=== PATIENT | male | born 1950 | race Caucasian/White ===

== ENCOUNTER → 2021-07-08 06:29 | Outpatient (CLI) | payer MEDICARE, OTHER, SELFPAY ==
--- NOTE | 2021-07-08 11:35 | STRESSREP ---
Stress Test Report Pharmacologic myocardial perfusion stress test. 70-year-old male with a history of chest pain. Medications simvastatin lisinopril metoprolol Plavix. Stress protocol: Rest EKG demonstrates normal sinus rhythm with a rate of 81 bpm premature ventricular complexes are noted resting blood pressure is 140/88 mmHg. The right bundle branch block pattern is noted. 0.4 mg of regadenoson was infused per usual protocol followed by rapid venous saline flush injection continuous EKG monitoring was performed. The maximum heart rate attained was 97 bpm which was 63% of max infected heart rate the maximum workload was 1 metabolic equivalent. At rest there were no ST or T wave changes noted to suggest abnormal flow reserve and at peak infusion nonspecific ST changes were noted with did not meet the criteria for ischemia. No clinical angina was noted. The final blood pressure was 140/68 mmHg. Myocardial perfusion protocol. 14.2 mCi of technetium 99m sestamibi was injected at rest. 0.4 mg of regadenoson was infused per usual protocol. At peak infusion 44.5 mCi of technetium 99m sestamibi was injected stress images were obtained stress and rest images were reconstructed and compared in the short axis vertical long and horizontal long axis. Gated images were also obtained. Perfusion SPECT analysis: Review of the stress images demonstrate normal uptake of tracer noted in all areas of the myocardium. The resting images similarly demonstrate normal uptake of tracer noted in all areas of the myocardium. No areas of reversibility are noted to suggest ischemia. Gated SPECT analysis: The gated ejection fraction is 81%. Conclusion: Normal pharmacologic myocardial perfusion stress test. Preserved ejection fraction.
== END ==
PROVIDERS: PCP Family Medicine
DX: I25.119 Atherosclerotic heart disease of native coronary artery with unspecified angina pectoris (principal)
CPT/HCPCS: 78452; 93017; A9500; A4216; J2785

== ENCOUNTER 2024-11-18 13:22 | Inpatient (IN) | payer MEDICARE, OTHER, SELFPAY ==
[2024-11-18] VITALS (14 sets, daily range): BP systolic 138–164; BP diastolic 60–89; PULSE 78–92; RESP 16–20; TEMP 36.6–37.6; O2SAT 93–98; BMI 31.0
--- NOTE | 2024-11-18 13:28 | EKG12_ITS ---
Test Reason : SOB Blood Pressure : */* mmHG Vent. Rate : 80 BPM Atrial Rate : 80 BPM P-R Int : 206 ms QRS Dur : 130 ms QT Int : 400 ms P-R-T Axes : 71 64 40 degrees QTcB Int : 461 ms Normal sinus rhythm Right bundle branch block Abnormal ECG Confirmed by CORINA WASHINGTON, IMELDA ([id number]), associate editor JACQUES LEPE ([id number]) on 11/21/2024 7:26:37 AM Referred By: Confirmed By: IMELDA ARRIAGA MD
[2024-11-18 14:08] LABS: Absolute Lymphocyte Count 0.28 X10^3/uL (0.83-4.51); Absolute Neutrophil Count 6.7 X10^3/uL (2.0-7.7); Basophil# 0.03 X10^3/uL; Basophil% 0.4 % (0-1); Eosinophil# 0.03 X10^3/uL; Eosinophils% 0.4 % (0-5); Hematocrit 45.1 % (40-54); Hemoglobin 15.4 g/dL (13.0-16.5); Lymphocyte # 0.28 X10^3/ul (0.83-4.51); Lymphocyte % 3.7 % (19-41); Mean Corp Hgb Conc 34.1 g/dL (32-36); Mean Corpuscular Volume 90.7 fL (80-94); Mean Platelet Vol. 9.3 fl (6.2-12.0); Monocyte# 0.63 X10^3/uL; Monocyte% 8.2 % (0-10); NRBC Flagged by Analyzer 0 % (0-5); Neutrophil # 6.67 X10^3/uL (2.7-7.7); Neutrophil % 86.9 % (47-70); POSITIVE DIFFERENTIAL YES; Platelet Count 190 K/mm3 (150-450); RBC Distribution Width CV 12.2 % (11.6-14.6); RBC Distribution Width SD 40.2 fl (35.1-43.9); Red Blood Count 4.97 M/mm3 (4.6-6.2); White Blood Count 7.7 K/mm3 (4.4-11.0)
[2024-11-18 14:26] LABS: Anion Gap 8 (5-15); BUN 9 mg/dL (7-18); BUN/Creat Ratio 12.4 RATIO (10-20); Calcium,Total 9.2 mg/dL (8.5-10.1); Chloride 101 mmol/L (98-107); Creatinine, Serum 0.72 mg/dL (0.70-1.30); EST Glomerular Filtration Rate 113 mL/min (>60); Est Glom Filt Rate - Afr Amer 137 mL/min (>60); Glucose 144 mg/dL (74-106); Potassium 4.1 mmol/L (3.5-5.1); Sodium Level 134 mmol/L (136-145); Troponin-I HS 8 pg/mL (3.0-78.0)
--- NOTE | 2024-11-18 15:00 | EDS_ITS ---
HPI History of Present Illness Chief Complaint: Cough Narrative Narrative: Patient is a 74-year-old male past medical type 2 diabetes, CAD, hypertension, COPD, hypercholesteremia who presents to the emergency department chief complaint of cough and shortness of breath as well as generalized weakness for the last 4 days. Patient states that he has not been feeling well has had a dry cough not really coughing anything up. Denies any recent travels denies any blood thinning medications. Patient states that he has had whole body aches and decreased appetite as well. [facility] Medical History Hypertension CAD (coronary artery disease) Type 2 diabetes mellitus COPD (chronic obstructive pulmonary disease) Allergy/AdvReac Type Severity Reaction Status Date / Time bee venom protein (honey Allergy Severe Hives Verified 11/18/24 13:23 bee) (bee sting) meperidine (From Demerol) Allergy Severe Other Verified 11/18/24 13:23 Social History household members: spouse housing: house Smoking Status: Former smoker ROS ROS ED ROS Narrative Constitutional: Complains of whole body aches denies any fevers, chills, lightness, dizziness Eyes: Denies change in vision double vision blurry vision Cardiovascular: Denies chest pain or palpitations Respiratory: Complains cough and shortness of breath as noted above Abdomen: Denies abdominal pain nausea vomit diarrhea : Denies any urinary symptoms Neurological: Denies numbness, tingling complaint of generalized weakness as noted above Musculoskeletal: Denies any back pain Skin: Denies rashes or lesions EXAM Physical Exam Narrative Exam Narrative: General: Patient lying in bed rest comfortably did not appear to be acute distress Head: Atraumatic, normocephalic Eyes: PERRL bilaterally, EOMI bilaterally, no conjunctival injection noted Neck: Soft, supple, trachea midline Cardiovascular: Regular rate and rhythm no murmurs gallops rubs noted Respiratory: Clear to auscultation bilaterally no rales rhonchi or wheezes noted Abdomen: Soft, nondistended, nontender to palpation, bowel sounds present x 4 Extremities: Radial pulses +2/4 in the bilateral per extremities, no pedal edema on exam, +4/5 strength noted in the bilateral upper and lower extremities Neurological: Patient following commands knew that this he was at [facility] year is 2024 sensation grossly intact Skin: Warm, dry, intact no rashes or lesions noted Const Vital Signs: 11/18/24 13:24 11/18/24 13:27 11/18/24 14:27 Temperature 98.0 F 98.0 F Temperature Source Oral Oral Pulse Rate 80 80 Respiratory Rate 20 H 20 H Respiratory Effort Respiratory Depth Respiratory Pattern Blood Pressure 154/66 H 154/66 H Blood Pressure Mean 95 95 Pulse Ox 98 98 96 Oxygen Delivery Method Room Air Room Air Room Air 11/18/24 14:27 11/18/24 14:27 11/18/24 14:27 Temperature 99.1 F Temperature Source Oral Pulse Rate 86 Respiratory Rate 20 H 20 H Respiratory Effort Normal Non-Labored Respiratory Depth Respiratory Pattern Normal Blood Pressure 138/86 H Blood Pressure Mean 103 Pulse Ox 96 96 Oxygen Delivery Method Room Air 11/18/24 14:35 11/18/24 15:00 11/18/24 15:18 Temperature 98.9 F Temperature Source Oral Pulse Rate 78 Respiratory Rate 19 H 20 H Respiratory Effort Short of Breath Labored Respiratory Depth Deep Respiratory Pattern Normal Normal Blood Pressure 138/89 H Blood Pressure Mean 105 Pulse Ox 96 Oxygen Delivery Method Room Air 11/18/24 15:22 11/18/24 16:00 Temperature 98.7 F 98.9 F Temperature Source Oral Oral Pulse Rate 89 78 Respiratory Rate 20 H 19 H Respiratory Effort Respiratory Depth Respiratory Pattern Blood Pressure 149/60 H 138/89 H Blood Pressure Mean 89 105 Pulse Ox 95 96 Oxygen Delivery Method Room Air Room Air MDM MDM MDM Narrative Medical decision making narrative: Patient is a 74-year-old male who presented to the emergency department with a chief complaint of cough, shortness of breath and generalized weakness for the last 4 days. On the differential diagnose includes but not limited to ACS, pneumonia, pneumothorax, perspire infection secondary viral etiology, COPD exacerbation. Once workup is obtained reviewed he will be reevaluated. Patient CBC reviewed showed no evidence leukocytosis white blood count normal at 7.7, hemoglobin 15.4, plate count normal at 190. Patient sodium normal at 134, potassium normal at 4.1, creatinine was 0.72. Patient's glucose was noted be 144.. Patient's troponin was noted to be normal at 8 with a delta troponin normal at 8. Patient proBNP normal at 36.8. Patient's EKG reviewed and independently interpreted by myself showed sinus rhythm with a rate of 80 bpm with evidence of right bundle branch block.Patient chest x-ray reviewed by myself and by radiology showed no acute cardiopulmonary processes. Patient attempted to ambulate here in the emergency department and before fully get out of bed he became tachycardic and hypoxic therefore the patient will be admitted to the hospital under the hospitalist service will discuss with them. Did discuss case with hospitalist Dr. Barrera who accept patient for admission [facility]. Patient was notified all question concerns answered. Lab Data Labs: Laboratory Results - last 24 hr 11/18/24 11/18/24 13:53 15:29 WBC 7.7 RBC 4.97 Hgb 15.4 Hct 45.1 MCV 90.7 MCH 31.0 MCHC 34.1 RDW Std Deviation 40.2 RDW Coeff of Rosemary 12.2 Plt Count 190 MPV 9.3 Immature Gran % (Auto) 0.400 Neut % (Auto) 86.9 H Lymph % (Auto) 3.7 L [place] % (Auto) 8.2 Eos % (Auto) 0.4 Baso % (Auto) 0.4 Absolute Neuts (auto) 6.7 Absolute Lymphs (auto) 0.28 L Nucleated RBC % 0 Sodium 134 L Potassium 4.1 Chloride 101 Carbon Dioxide 25.0 Anion Gap 8 BUN 9 Creatinine 0.72 Est GFR (MDRD) Af Amer 137 Est GFR (MDRD) Non-Af 113 BUN/Creatinine Ratio 12.4 Glucose 144 H Calcium 9.2 Troponin I High Sens 8 8 B-Natriuretic Peptide 36.8 Radiography Diagnostic Testing: Clinical Impression(s) from Imaging Studies Chest X-Ray 11/18/24 15:35 IMPRESSION: No acute cardiopulmonary process. Reading Location: [facility] Discharge Plan Triage Chief Complaint: Cough Other Complaint: General Illness ED Provider: Manuel Tuttle Dx/Rx/DC Orders Clinical Impression: Acute hypoxic respiratory failure, COPD exacerbation, Influenza A Primary Care Provider: CASANDRA SORIA Referrals: James Hopkins DO [Non-Staff] - Print Language: Serbian
[2024-11-18] MEDS: Ipratropium/Albuterol Sulfate 3 ML AMPUL.NEB INHALATION ×2 (15:17→20:40)
[2024-11-18] MEDS: predniSONE 20 MG Tablet 60 MG PO (15:23)
[2024-11-18] MEDS: 0.9% Normal Saline (1000mL) 1,000 ML 999 ML IV (15:23)
--- NOTE | 2024-11-18 15:35 | RAD_ITS ---
EXAM: XR Chest, 2 Views CLINICAL INDICATION: TECHNIQUE: Frontal and lateral views of the chest. COMPARISON: No relevant prior studies available. FINDINGS: LUNGS AND PLEURAL SPACES: Unremarkable. No consolidation. No pneumothorax. HEART: Unremarkable. No cardiomegaly. MEDIASTINUM: Unremarkable. Normal mediastinal contour. BONES/JOINTS: Unremarkable. No acute fracture. RAD/Chest PA and Lateral IMPRESSION: No acute cardiopulmonary process. Reading [facility]
[2024-11-18 15:40] LABS: BNP,B-Type NATRIURETIC PEPTIDE 36.8 pg/mL (0-100)
[2024-11-18 16:07] LABS: Troponin-I HS 8 pg/mL (3.0-78.0)
--- NOTE | 2024-11-18 17:07 | PCM.HP.STD ---
HPI - General General Date of Admission: 11/18/24 Date of Service: 11/18/24 Chief Complaint: SOB, aches HPI Narrative FRANKLIN BROWN, is a 74-year-old male history of COPD, coronary disease, hypertension who presented [facility] ED 11/18/2024 with several days of bodyaches, fevers, chills and dry cough. In the ED lab workup fairly benign however when patient was ambulated she dropped to 88% on room air and became slightly tachycardic. He was noted to have influenza, given prednisone and a DuoNeb and hospitalist contacted for admission. Patient evaluated at bedside and reports that for for 5 days he has had shortness of breath, dry cough, chills and whole body aches. Also some sore throat and headache, reports he has chronic stable angina which is overall fairly unchanged. Denies other acute complaints [facility] Medical History (Updated 11/18/24 @ 17:[address] Glenis Barrera MD) CAD (coronary artery disease) COPD (chronic obstructive pulmonary disease) Hypertension Type 2 diabetes mellitus Home Medications ?Medication ?Instructions ?Recorded ?Last Taken ?Type clopidogrel 75 mg tablet 75 mg PO DAILY 11/18/24 Unknown History lisinopril 5 mg tablet 5 mg PO DAILY 11/18/24 Unknown History metoprolol tartrate 50 mg tablet 50 mg PO DAILY 11/18/24 Unknown History simvastatin 40 mg tablet 40 mg PO DAILY 11/18/24 Unknown History Allergy/AdvReac Type Severity Reaction Status Date / Time bee venom protein (honey Allergy Severe Hives Verified 11/18/24 13:23 bee) (bee sting) meperidine (From Demerol) Allergy Severe Other Verified 11/18/24 13:23 Social History household members: spouse housing: house Smoking Status: Former smoker ROS ROS Narrative General: Chills HENT: Headache and sore throat EYES: Denies changes in vision Resp: Dry cough and increased shortness of breath Cardiac: Chronic stable angina GI: Denies abdominal pain, denies changes in bowel, denies nausea/vomiting : Denies changes in urination Extremity: Denies swelling MSK: Some generalized weakness Neuro: Chronic neuropathy Heme: Denies any bleeding or bruising Skin: Denies rashes Psychiatric: No complaints voiced Vital Signs Vital Signs Vital Signs: 11/18/24 13:24 11/18/24 13:27 11/18/24 14:27 Temperature 98.0 F 98.0 F Temperature Source Oral Oral Pulse Rate 80 80 Respiratory Rate 20 H 20 H Respiratory Effort Respiratory Depth Respiratory Pattern Blood Pressure 154/66 H 154/66 H Blood Pressure Mean 95 95 Pulse Ox 98 98 96 Oxygen Delivery Method Room Air Room Air Room Air 11/18/24 14:27 11/18/24 14:27 11/18/24 14:27 Temperature 99.1 F Temperature Source Oral Pulse Rate 86 Respiratory Rate 20 H 20 H Respiratory Effort Normal Non-Labored Respiratory Depth Respiratory Pattern Normal Blood Pressure 138/86 H Blood Pressure Mean 103 Pulse Ox 96 96 Oxygen Delivery Method Room Air 11/18/24 14:35 11/18/24 15:00 11/18/24 15:18 Temperature 98.9 F Temperature Source Oral Pulse Rate 78 Respiratory Rate 19 H 20 H Respiratory Effort Short of Breath Labored Respiratory Depth Deep Respiratory Pattern Normal Normal Blood Pressure 138/89 H Blood Pressure Mean 105 Pulse Ox 96 Oxygen Delivery Method Room Air 11/18/24 15:22 11/18/24 16:00 11/18/24 16:48 Temperature 98.7 F 98.9 F 98.9 F Temperature Source Oral Oral Pulse Rate 89 78 78 Respiratory Rate 20 H 19 H 19 H Respiratory Effort Respiratory Depth Respiratory Pattern Blood Pressure 149/60 H 138/89 H 164/69 H Blood Pressure Mean 89 105 100 Pulse Ox 95 96 96 Oxygen Delivery Method Room Air Room Air Weight Weight: 101 kg Body Mass Index (BMI) 31.0 Physical Exam Narrative General: Alert, no apparent distress HEENT: Atraumatic, normocephalic Eyes: Anicteric, normal conjunctiva, extraocular movements grossly intact Neck: Supple Respiratory: Diminished bilaterally, slight increased respiratory effort Cardiovascular: Regular rate and rhythm GI: Soft, nontender, nondistended Extremities: No edema Musculoskeletal: Moving all extremities Neuro: No overt focal neurological deficits Skin: No rashes appreciated Psych: Cooperative Results Lab / Micro Data 11/18/24 13:53 11/18/24 13:53 Labs: Laboratory Results - last 24 hr 11/18/24 13:53: WBC 7.7, RBC 4.97, Hgb 15.4, Hct 45.1, MCV 90.7, MCH 31.0, MCHC 34.1, RDW Std Deviation 40.2, RDW Coeff of Rosemary 12.2, Plt Count 190, MPV 9.3, Immature Gran % (Auto) 0.400, Neut % (Auto) 86.9 H, Lymph % (Auto) 3.7 L, [place] % (Auto) 8.2, Eos % (Auto) 0.4, Baso % (Auto) 0.4, Absolute Neuts (auto) 6.7, Absolute Lymphs (auto) 0.28 L, Nucleated RBC % 0, Sodium 134 L, Potassium 4.1, Chloride 101, Carbon Dioxide 25.0, Anion Gap 8, BUN 9, Creatinine 0.72, Est GFR (MDRD) Af Amer 137, Est GFR (MDRD) Non-Af 113, BUN/Creatinine Ratio 12.4, Glucose 144 H, Calcium 9.2, Troponin I High Sens 8, B-Natriuretic Peptide 36.8 11/18/24 15:29: Troponin I High Sens 8 Micro: Microbiology 11/18/24 13:36 Mucosa - Nose SARS-CoV-2, Influenza & RSV (PCR) - Final Influenzae A Imaging Radiology Impression Chest X-Ray 11/18/24 15:35 IMPRESSION: No acute cardiopulmonary process. Reading Location: [facility] Assessment & Plan Assessment/Plan (1) COPD exacerbation: (2) Influenza A: PLAN: Plan #Acute exacerbation of COPD -Admit to floor, continuous O2 monitoring -Chest x-ray: No acute process -Positive for influenza -O2 in place, wean as tolerated -IV methylprednisone -Scheduled DuoNebs -Albuterol prn -Incentive spirometer -Mucinex # History of coronary artery disease -Based on external fill history patient on complete a grill, statin, metoprolol, will continue but will need to verify home medication list #Type 2 diabetes mellitus -Glucose checks and sliding scale insulin -Patient reports being on insulin but was unable to tell me how much, do not see this on external fill history, will need to ultimately clarify #Hypertension -Patient most recent fill history with lisinopril metoprolol, these have been continued pending updated medicine reconciliation #DVT ppx: Lovenox subcu Glenis Barrera MD Charges/Coding Visit Charges Inpatient E&M: 21850 Init Hosp L1
--- NOTE | 2024-11-18 18:26 | CASEMGMT ---
Care Management Face to Face with patient for initial transition planning/care coordination assessment in the ED.? This blurb writer introduced self and role at [facility]. Patient alert and oriented. Patient willing to participate in assessment and is able to answer all questions appropriately.? Care providers, pharmacy, and demographics verified. Admitting Diagnosis: COPD exacerbation Other diagnosis history: CAD, Hypertension, Diabetes type 2 PCP: Luciano Specialists: Luciano, cardiology Preferred Pharmacy: [facility] Insurance: Medicare Prescription Benefit:?yes Living Will/HPOA: ?No LNOK: Living Arrangements: Lives with in a two story home, does not use 2nd story , has been independent in ADLs and IADLs Transportation: drives self DME: cane HHC: none SNF/Rehab: none Community Resources: none Behavioral Health History: none Patient goals: Patient wishes to discharge home, denies need for home health care at this time. Patient states he has no further needs or concerns at this time. Disposition Plan: admission to acute; RN CM/SW to follow for discharge planning needs that may arise. Haleigh Gomez, BOATING SAFETY OFFICER, ORACLE CONSULTANT
[2024-11-18] MEDS: Acetaminophen 325 MG Tablet 650 MG PO (20:11)
[2024-11-18] MEDS: Atorvastatin Calcium 20 MG Tablet PO (21:39)
[2024-11-18] MEDS: guaiFENesin 600 MG Tablet PO (21:39)
[2024-11-18] MEDS: 0.9% Saline Lock 10 ML Syringe IV (21:41)
[2024-11-18] MEDS: Insulin Lispro 100 UNIT/ML INSULN.PEN SC (21:45)
[2024-11-18 22:08] LABS: Bedside Glucose 228 mg/dL (74-106)
[2024-11-19] VITALS (9 sets, daily range): BP systolic 142–166; BP diastolic 68–88; PULSE 68–100; RESP 15–24; TEMP 36.5–36.7; O2SAT 94–98
[2024-11-19] MEDS: Ipratropium/Albuterol Sulfate 3 ML AMPUL.NEB INHALATION ×3 (00:30→07:42)
[2024-11-19] MEDS: Insulin Lispro 100 UNIT/ML INSULN.PEN SC ×4 (06:28→22:35)
[2024-11-19] MEDS: 0.9% Saline Lock 10 ML Syringe IV ×3 (06:29→20:13)
[2024-11-19 06:49] LABS: Bedside Glucose 284 mg/dL (74-106)
[2024-11-19 07:23] LABS: Absolute Lymphocyte Count 0.27 X10^3/uL (0.83-4.51); Absolute Neutrophil Count 4.5 X10^3/uL (2.0-7.7); Hematocrit 40.4 % (40-54); Hemoglobin 14.1 g/dL (13.0-16.5); Lymphocyte # 0.27 X10^3/ul (0.83-4.51); Lymphocyte % 5.5 % (19-41); Mean Corp Hgb Conc 34.9 g/dL (32-36); Mean Corpuscular Hgb 31.4 pg (27.0-32.0); Mean Platelet Vol. 9.8 fl (6.2-12.0); NRBC Flagged by Analyzer 0 % (0-5); Neutrophil # 4.45 X10^3/uL (2.7-7.7); Neutrophil % 89.9 % (47-70); POSITIVE DIFFERENTIAL YES; Platelet Count 172 K/mm3 (150-450); RBC Distribution Width CV 12.2 % (11.6-14.6); RBC Distribution Width SD 40.1 fl (35.1-43.9); Red Blood Count 4.49 M/mm3 (4.6-6.2)
--- NOTE | 2024-11-19 07:40 | PN.HOSP_ITS ---
Reason for Visit Reason for Visit: Diagnoses Influenza due to other identified influenza virus with other respiratory manifestations (11/18/24) Chronic obstructive pulmonary disease with (acute) exacerbation (11/18/24) Subjective Subjective Patient is a 74-year-old gentleman admitted with progressive shortness of breath. Patient tested positive for influenza A admitted to the regular nursing floor where patient is currently being managed Objective Data Objective Data Vital Signs: Vital Signs Temp Pulse Resp BP Pulse Ox O2 Del Method 98.1 F 88 16 146/68 H 98 Room Air 11/19/24 02:31 11/19/24 03:50 11/19/24 03:50 11/19/24 02:31 11/19/24 02:31 11/19/24 02:35 Oxygen Delivery Method Room Air Weight: 101 kg Body Mass Index (BMI) 31.0 Intake & Output: Intake and Output for Last 24 Hours 11/17/24 11/18/24 11/19/24 23:59 23:59 23:59 Intake Total 1400 / 1400 300 / 300 Balance 1400 / 1400 300 / 300 Lab / Micro Data 11/19/24 06:32 11/19/24 06:32 Labs: Laboratory Results - last 24 hr 11/18/24 13:53: WBC 7.7, RBC 4.97, Hgb 15.4, Hct 45.1, MCV 90.7, MCH 31.0, MCHC 34.1, RDW Std Deviation 40.2, RDW Coeff of Rosemary 12.2, Plt Count 190, MPV 9.3, Immature Gran % (Auto) 0.400, Neut % (Auto) 86.9 H, Lymph % (Auto) 3.7 L, [place] % (Auto) 8.2, Eos % (Auto) 0.4, Baso % (Auto) 0.4, Absolute Neuts (auto) 6.7, A bsolute Lymphs (auto) 0.28 L, Nucleated RBC % 0, Sodium 134 L, Potassium 4.1, Chloride 101, Carbon Dioxide 25.0, Anion Gap 8, BUN 9, Creatinine 0.72, Est GFR (MDRD) Af Amer 137, Est GFR (MDRD) Non-Af 113, BUN/Creatinine Ratio 12.4, G lucose 144 H, Calcium 9.2, Troponin I High Sens 8, B-Natriuretic Peptide 36.8 11/18/24 15:29: Troponin I High Sens 8 11/18/24 21:44: POC Glucose 228 H 11/19/24 06:27: POC Glucose 284 H 11/19/24 06:32: WBC 5.0, RBC 4.49 L, Hgb 14.1, Hct 40.4, MCV 90.0, MCH 31.4, MCHC 34.9, RDW Std Deviation 40.1, RDW Coeff of Rosemary 12.2, Plt Count 172, MPV 9.8, Immature Gran % (Auto) 0.600, Neut % (Auto) 89.9 H, Lymph % (Auto) 5.5 L, [place] % (Auto) 4.0, Eos % (Auto) 0.0, Baso % (Auto) 0.0, Absolute Neuts (auto) 4.5, Absolute Lymphs (auto) 0.27 L, Nucleated RBC % 0 Micro: Microbiology 11/18/24 13:36 Mucosa - Nose SARS-CoV-2, Influenza & RSV (PCR) - Final Influenzae A Radiography Diagnostic Testing: Radiology Impression Chest X-Ray 11/18/24 15:35 IMPRESSION: No acute cardiopulmonary process. Reading Location: [facility] Physical Exam Narrative GENERAL: Appears anxious and tremulous HEENT: Atraumatic; normocephalic EYES; Anicteric, Normal Conjunctiva NECK; supple, normal thyroid, RESPIRATORY: Diminished to auscultation CARDIOVASCULAR: Regular S1 S2, GI: soft, normoactive bowel sounds, : No Renal angle tenderness; EXTREMITIES: No edema, no clubbing, MUSCULOSKELETAL: no muscle wasting NEURO: Awake; no lateralizing signs. SKIN: No Rash PSYCH; Flat affect Assessment & Plan Assessment/Plan (1) COPD exacerbation: (2) Influenza A: PLAN: Plan Patient is a 74-year-old gentleman admitted with progressive shortness of breath. Patient tested positive for influenza A admitted to the regular nursing floor where patient is currently being managed 1. Acute exacerbation of COPD exacerbated by influenza A. Patient admitted to regular nursing floor patient was started on methylprednisolone as well as DuoNeb and albuterol as needed patient however had a significant reaction to the DuoNeb with significant tremors. DuoNeb subsequently discontinued patient placed on albuterol only as needed. 2. Coronary artery disease ? Patient is on guideline directed medical therapy 3. Dyslipidemia ?Patient is on statin therapy, continued at home dose 4. Hypertension ? Blood pressure controlled, home medications continued with dose adjustment as needed 5. Diabetes mellitus type 2 ? Per history currently not on any treatment. Patient however developed significant hypoglycemia following use of methylprednisolone patient subsequently started on scheduled long-acting insulin with Accu-Cheks before meals and at bedtime with sliding scale coverage 6. Class I obesity with BMI of 31 ? Complicating care weight loss advised 7. Hyponatremia ? Sodium level on admission [id number]. Will continue with monitoring 8. DVT prophylaxis ? On enoxaparin Time spent in the patient's overall evaluation,decision-making process, review of diagnostic data, adjustment of management, discussion with other providers, nursing nursing and ancillary staff involved in patient's care documentation, 50 Minutes Charges/Coding Visit Charges Inpatient E&M: 81978 [facility] L3
[2024-11-19 07:43] LABS: Anion Gap 11 (5-15); BUN 15 mg/dL (7-18); BUN/Creat Ratio 18.3 RATIO (10-20); Calcium,Total 8.9 mg/dL (8.5-10.1); Chloride 102 mmol/L (98-107); Creatinine, Serum 0.82 mg/dL (0.70-1.30); EST Glomerular Filtration Rate 98 mL/min (>60); Est Glom Filt Rate - Afr Amer 119 mL/min (>60); Estimated Creatinine Clearance 98.57 ml/min; Glucose 301 mg/dL (74-106); Potassium 3.8 mmol/L (3.5-5.1); Sodium Level 134 mmol/L (136-145)
--- NOTE | 2024-11-19 07:48 | CPS ---
pt began shaking about 1 minute into his aerosol (he doesn't take at home), shaking was severe. Pt says this happened after the aerosol last night. RT will backline the DR. Pt doesn't want anymore and isn't wheezing.
[2024-11-19] MEDS: LORazepam 1 MG Tablet PO (09:22)
[2024-11-19 10:14] LABS: Bedside Glucose 298 mg/dL (74-106)
[2024-11-19] MEDS: Metoprolol Tartrate 50 MG Tablet PO (10:34)
[2024-11-19] MEDS: guaiFENesin 600 MG Tablet PO ×2 (10:34→20:13)
[2024-11-19] MEDS: Clopidogrel Bisulfate 75 MG Tablet PO (10:34)
[2024-11-19] MEDS: Enoxaparin 40 MG/0.4 ML Syringe SC (10:35)
[2024-11-19] MEDS: Lisinopril 5 MG Tablet PO (10:35)
[2024-11-19 11:01] LABS: D-Dimer Quantitative (DVT/PE) 0.64 FEU/ug/m (0.27-0.49)
[2024-11-19] MEDS: Insulin Glargine-YFGN 100 UNIT/ML Pen 10 UNIT SC ×2 (11:51→22:34)
[2024-11-19 12:15] LABS: Bedside Glucose 374 mg/dL (74-106)
[2024-11-19] MEDS: Glycerin/Hypromellose/PEG400 15 ml Bottle 2 DRP EACH EYE (15:36)
[2024-11-19 16:26] LABS: Bedside Glucose 364 mg/dL (74-106)
[2024-11-19] MEDS: Atorvastatin Calcium 20 MG Tablet PO (20:13)
[2024-11-19] MEDS: Acetaminophen 325 MG Tablet 650 MG PO (22:41)
[2024-11-19 22:56] LABS: Bedside Glucose 338 mg/dL (74-106)
[2024-11-20 03:00] VITALS: BP 132/93; PULSE 98; RESP 15; TEMP 36.7; O2SAT 96
[2024-11-20] MEDS: LORazepam 1 MG Tablet PO (03:14)
[2024-11-20 03:26] LABS: Bedside Glucose 284 mg/dL (74-106)
[2024-11-20] MEDS: 0.9% Saline Lock 10 ML Syringe IV (05:44)
[2024-11-20] MEDS: Insulin Lispro 100 UNIT/ML INSULN.PEN SC ×2 (06:45→11:59)
[2024-11-20 07:18] LABS: Bedside Glucose 258 mg/dL (74-106)
--- NOTE | 2024-11-20 07:34 | PCM.PN.HOSP ---
Reason for Visit Reason for Visit: Diagnoses Influenza due to other identified influenza virus with other respiratory manifestations (11/18/24) Chronic obstructive pulmonary disease with (acute) exacerbation (11/18/24) Subjective Subjective Patient seen patient has been weaned off oxygen currently saturating 94% on room air. An order was placed for patient to be assessed for home oxygen Objective Data Objective Data Vital Signs: Vital Signs Temp Pulse Resp BP Pulse Ox O2 Del Method 98.1 F 98 15 132/93 H 96 Room Air 11/20/24 03:00 11/20/24 03:00 11/20/24 03:00 11/20/24 03:00 11/20/24 03:00 11/20/24 03:00 Oxygen Delivery Method Room Air Weight: 101 kg Body Mass Index (BMI) 31.0 Intake & Output: Intake and Output for Last 24 Hours 11/18/24 11/19/24 11/20/24 23:59 23:59 23:59 Intake Total 1400 / 1400 550 / 550 Output Total 300 / 300 Balance 1400 / 1400 550 / 550 -300 / -300 Lab / Micro Data 11/20/24 07:09 11/20/24 07:09 Labs: Laboratory Results - last 24 hr 11/19/24 06:32: Sodium 134 L, Potassium 3.8, Chloride 102, Carbon Dioxide 21.0, Anion Gap 11, BUN 15, Creatinine 0.82, Estim Creat Clear Calc 98.57, Est GFR (MDRD) Af Amer 119, Est GFR (MDRD) Non-Af 98, BUN/Creatinine Ratio 18.3, Glucose 301 H, Calcium 8.9 11/19/24 09:56: POC Glucose 298 H 11/19/24 10:06: D-Dimer Quant (PE/DVT) 0.64 H* 11/19/24 11:50: POC Glucose 374 H 11/19/24 16:02: POC Glucose 364 H 11/19/24 22:32: POC Glucose 338 H 11/20/24 03:02: POC Glucose 284 H 11/20/24 06:42: POC Glucose 258 H Micro: Microbiology 11/18/24 13:36 Mucosa - Nose SARS-CoV-2, Influenza & RSV (PCR) - Final Influenzae A Physical Exam Narrative GENERAL: Appears anxious and tremulous HEENT: Atraumatic; normocephalic EYES; Anicteric, Normal Conjunctiva NECK; supple, normal thyroid, RESPIRATORY: Diminished to auscultation CARDIOVASCULAR: Regular S1 S2, GI: soft, normoactive bowel sounds, : No Renal angle tenderness; EXTREMITIES: No edema, no clubbing, MUSCULOSKELETAL: no muscle wasting NEURO: Awake; no lateralizing signs. SKIN: No Rash PSYCH; Flat affect Assessment & Plan Assessment/Plan (1) COPD exacerbation: (2) Influenza A: PLAN: Plan Patient is a 74-year-old gentleman admitted with progressive shortness of breath. Patient tested positive for influenza A admitted to the regular nursing floor where patient is currently being managed 1. Acute exacerbation of COPD exacerbated by influenza A. Patient admitted to regular nursing floor patient was started on methylprednisolone as well as DuoNeb and albuterol as needed patient however had a significant reaction to the DuoNeb with significant tremors. DuoNeb subsequently discontinued patient placed on albuterol only as needed. ? 11/20/2024; patient has been weaned off oxygen plan is to assess patient for home oxygen prior to making a decision regarding disposition 2. Coronary artery disease ? Patient is on guideline directed medical therapy 3. Dyslipidemia ?Patient is on statin therapy, continued at home dose 4. Hypertension ? Blood pressure controlled, home medications continued with dose adjustment as needed 5. Diabetes mellitus type 2 ? Per history currently not on any treatment. Patient however developed significant hypoglycemia following use of methylprednisolone patient subsequently started on scheduled long-acting insulin with Accu-Cheks before meals and at bedtime with sliding scale coverage ? 11/20/2024; patient blood glucose levels still remain elevated adjusted his long-acting insulin levels 6. Class I obesity with BMI of 31 ? Complicating care weight loss advised 7. Hyponatremia ? Sodium level on admission [id number]. Will continue with monitoring 8. DVT prophylaxis ? On enoxaparin 9. Elevated D-dimer ? CTA ordered for subsequent Time spent in the patient's overall evaluation,decision-making process, review of diagnostic data, adjustment of management, discussion with other providers, nursing nursing and ancillary staff involved in patient's care documentation, 40 Minutes Charges/Coding Visit Charges Inpatient E&M: 60248 Subs Hosp L2
[2024-11-20 07:41] LABS: Absolute Lymphocyte Count 0.55 X10^3/uL (0.83-4.51); Absolute Neutrophil Count 9.6 X10^3/uL (2.0-7.7); Basophil# 0.01 X10^3/uL; Basophil% 0.1 % (0-1); Hematocrit 42.4 % (40-54); Hemoglobin 14.5 g/dL (13.0-16.5); Lymphocyte # 0.55 X10^3/ul (0.83-4.51); Mean Corp Hgb Conc 34.2 g/dL (32-36); Mean Corpuscular Volume 90.8 fL (80-94); Mean Platelet Vol. 9.9 fl (6.2-12.0); Monocyte# 0.81 X10^3/uL; Monocyte% 7.3 % (0-10); NRBC Flagged by Analyzer 0 % (0-5); Neutrophil # 9.63 X10^3/uL (2.7-7.7); Neutrophil % 87.3 % (47-70); POSITIVE DIFFERENTIAL YES; Platelet Count 209 K/mm3 (150-450); RBC Distribution Width CV 12.5 % (11.6-14.6); RBC Distribution Width SD 41.1 fl (35.1-43.9); Red Blood Count 4.67 M/mm3 (4.6-6.2)
[2024-11-20 08:00] VITALS: RESP 20
[2024-11-20 08:02] VITALS: O2SAT 94
[2024-11-20 08:40] VITALS: BP 157/74; PULSE 80; RESP 20; TEMP 36.7; O2SAT 95
[2024-11-20 08:40] LABS: Anion Gap 7 (5-15); BUN 25 mg/dL (7-18); BUN/Creat Ratio 30.1 RATIO (10-20); Calcium,Total 8.9 mg/dL (8.5-10.1); Chloride 104 mmol/L (98-107); Creatinine, Serum 0.83 mg/dL (0.70-1.30); EST Glomerular Filtration Rate 97 mL/min (>60); Est Glom Filt Rate - Afr Amer 117 mL/min (>60); Estimated Creatinine Clearance 97.38 ml/min; Glucose 265 mg/dL (74-106); Magnesium 2.3 mg/dL (1.6-2.6); Phosphorus 3.2 mg/dL (2.5-4.9); Potassium 4.5 mmol/L (3.5-5.1); Sodium Level 134 mmol/L (136-145)
[2024-11-20 09:02] VITALS: PULSE 80
[2024-11-20] MEDS: Lisinopril 5 MG Tablet PO (09:02)
[2024-11-20] MEDS: Metoprolol Tartrate 50 MG Tablet PO (09:02)
[2024-11-20] MEDS: guaiFENesin 600 MG Tablet PO (09:02)
[2024-11-20] MEDS: Acetaminophen 325 MG Tablet 650 MG PO (09:03)
[2024-11-20] MEDS: Clopidogrel Bisulfate 75 MG Tablet PO (09:03)
[2024-11-20 10:47] VITALS: O2SAT 93; O2SAT 96
--- NOTE | 2024-11-20 12:05 | DS.PCM_ITS ---
Providers Date of Admission: 11/18/24 Primary Care Physician: CASANDRA SORIA MD Reason For Visit: ACUTE HYPOXIC RESPIRATORY FAILURE, COPD EXACERBATI Diagnosis Discharge Diagnosis (1) COPD exacerbation: Status: Chronic Code(s): J44.1 - Chronic obstructive pulmonary disease with (acute) exacerbation (2) Influenza A: Status: Acute Code(s): J10.1 - Influenza due to other identified influenza virus with other respiratory manifestations Plan Patient is a 74-year-old gentleman admitted with progressive shortness of breath. Patient tested positive for influenza A admitted to the regular nursing floor where patient is currently being managed 1. Acute exacerbation of COPD exacerbated by influenza A. Patient admitted to regular nursing floor patient was started on methylprednisolone as well as DuoNeb and albuterol as needed patient however had a significant reaction to the DuoNeb with significant tremors. DuoNeb subsequently discontinued patient placed on albuterol only as needed. ? 11/20/2024; patient has been weaned off oxygen plan is to assess patient for home oxygen prior to making a decision regarding disposition ? Patient did not require oxygen hence the decision to discharge patient home 2. Coronary artery disease ? Patient is on guideline directed medical therapy 3. Dyslipidemia ?Patient is on statin therapy, continued at home dose 4. Hypertension ? Blood pressure controlled, home medications continued with dose adjustment as needed 5. Diabetes mellitus type 2 ? Per history currently not on any treatment. Patient however developed significant hypoglycemia following use of methylprednisolone patient subsequently started on scheduled long-acting insulin with Accu-Cheks before meals and at bedtime with sliding scale coverage ? 11/20/2024; patient blood glucose levels still remain elevated adjusted his long-acting insulin levels ? Prescription was written for glimepiride and metformin on discharge patient instructed to follow-up with primary care physician for management of his diabetes 6. Class I obesity with BMI of 31 ? Complicating care weight loss advised 7. Hyponatremia ? Sodium level on admission [id number]. Will continue with monitoring 8. DVT prophylaxis ? On enoxaparin 9. Elevated D-dimer ? D-dimer normal adjusted for patient's age Time spent in the patient's overall evaluation,decision-making process, review of diagnostic data, adjustment of management, discussion with other providers, nursing nursing and ancillary staff involved in patient's care documentation, 40 Minutes Medications at Discharge Home Medications clopidogrel 75 mg tablet 75 mg PO DAILY 02/07/25 lisinopril 5 mg tablet 5 mg PO DAILY 11/18/24 metoprolol tartrate 50 mg tablet 50 mg PO DAILY 11/18/24 simvastatin 40 mg tablet 40 mg PO DAILY 11/18/24 doxycycline hyclate 100 mg capsule 100 mg PO BID #14 caps 11/20/24 glimepiride 1 mg tablet 1 mg PO DAILY #60 tabs 11/20/24 guaifenesin 600 mg tablet, extended release 12 hr (Mucinex) 600 mg PO BID #20 tabs 11/20/24 metformin 1,000 mg tablet 1,000 mg PO BID 60 days #120 tabs 11/20/24 prednisone 20 mg tablet 20 mg PO BID #10 tabs 11/20/24 Physical Exam Narrative GENERAL: Patient in no apparent distress HEENT: Atraumatic; normocephalic EYES; Anicteric, Normal Conjunctiva NECK; supple, normal thyroid, RESPIRATORY: Diminished to auscultation CARDIOVASCULAR: Regular S1 S2, GI: soft, normoactive bowel sounds, : No Renal angle tenderness; EXTREMITIES: No edema, no clubbing, MUSCULOSKELETAL: no muscle wasting NEURO: Awake; no lateralizing signs. SKIN: No Rash PSYCH; Flat affect Weight / BMI Weight Weight: 101 kg Body Mass Index (BMI) 31.0 ABG / Lab / Microbiology Data 11/20/24 07:09 11/20/24 07:09 Laboratory: Laboratory Results - last 24 hr 11/19/24 11:50: POC Glucose 374 H 11/19/24 16:02: POC Glucose 364 H 11/19/24 22:32: POC Glucose 338 H 11/20/24 03:02: POC Glucose 284 H 11/20/24 06:42: POC Glucose 258 H 11/20/24 07:09: WBC 11.0, RBC 4.67, Hgb 14.5, Hct 42.4, MCV 90.8, MCH 31.0, MCHC 34.2, RDW Std Deviation 41.1, RDW Coeff of Rosemary 12.5, Plt Count 209, MPV 9.9, Immature Gran % (Auto) 0.300, Neut % (Auto) 87.3 H, Lymph % (Auto) 5.0 L, [place] % (Auto) 7.3, Eos % (Auto) 0.0, Baso % (Auto) 0.1, Absolute Neuts (auto) 9.6 H, A bsolute Lymphs (auto) 0.55 L, Nucleated RBC % 0, Sodium 134 L, Potassium 4.5, Chloride 104, Carbon Dioxide 23.0, Anion Gap 7, BUN 25 H, Creatinine 0.83, Estim Creat Clear Calc 97.38, Est GFR (MDRD) Af Amer 117, Est GFR (MDRD) Non-Af 97, B UN/Creatinine Ratio 30.1 H, Glucose 265 H, Calcium 8.9, Phosphorus 3.2, Magnesium 2.3 Microbiology: Microbiology 11/18/24 13:36 Mucosa - Nose SARS-CoV-2, Influenza & RSV (PCR) - Final Influenzae A D/C Instructions Discharge Diet: 1800 Calorie Control Diet Discharge Activity: Return to Normal Activity Call your doctor if you observe: Fever of 101 or Higher, Shortness of breath, Fainting spells and Chest pain DC O2, CPAP, BIPAP Needs RN Home O2 Qualification: Home O2 Qualification: Is the patient on home oxygen No 11/20/24 10:47 Home O2 Qualification: AT REST 1- Pulse Ox at rest 96 11/20/24 10:47 Home O2 Qualification: WITH AMBULATION 1- Pulse Ox with ambulation 93 11/20/24 10:47 1- Oxygen Flow Rate with 0 11/20/24 10:47 ambulation Home O2 Discharge instructions: No Meaningful Use Info Meaningful Use Meaningful Use Diagnoses (Choose all that apply): None applicable Ischemic Stroke Statin Dosing Therapy Reference: STATIN DOSE THERAPY REFERENCE: * Patients > 75 years receive moderate or high dose statin therapy. * Patients 75 years or YOUNGER should receive HIGH intensity statin dose unless contraindicated. You will be required to document reason for non-treatment if statin daily dose does not meet guidelines. HIGH DOSE STATIN THERAPY DAILY Atorvastatin > than or = to 40 mg Rosuvastatin > than or = to 20 mg Amlodipine + Atorvastatin > than or = to 2.5/40 mg Ezetimibe + Simvastatin 10/80 mg Simvastatin 80mg Discharge Plan Admission Admit Date/Time: 11/18/24 17:07 Attending Provider: Sang Andersen Primary Care Provider: CASANDRA SORIA Consulting Providers: Glenis Barrera Discharge Orders/Prescriptions Prescriptions: New guaifenesin [Mucinex] 600 mg Tablet Extended Release 12hr 600 mg PO BID Qty: 20 0RF doxycycline hyclate 100 mg capsule 100 mg PO BID Qty: 14 0RF prednisone 20 mg tablet 20 mg PO BID Qty: 10 0RF metformin 1,000 mg tablet 1,000 mg PO BID 60 Days Qty: 120 0RF glimepiride 1 mg tablet 1 mg PO DAILY Qty: 60 0RF Continued clopidogrel 75 mg tablet 75 mg PO DAILY lisinopril 5 mg tablet 5 mg PO DAILY metoprolol tartrate 50 mg tablet 50 mg PO DAILY simvastatin 40 mg tablet 40 mg PO DAILY Referrals / Follow Up: CASANDRA SORIA MD [Primary Care Provider] - James Hopkins DO [Non-Staff] - In 1 Week Disposition Disposition (needs filled in before D/C Order can be placed): Home, Self Care Charges/Coding Visit Charges Inpatient E&M: 49623 Disch Hosp >30min
[2024-11-20 12:48] LABS: Bedside Glucose 375 mg/dL (74-106)
[2024-11-20 17:55] LABS: Hemoglobin A1c 7.5 % (3.8-5.6)
== END 2024-11-20 14:28 | disposition home or self-care (01) | DRG 191 ==
LOC: ED 15:06 → MS3 17:06
PROVIDERS: Admitting Provider Internal Medicine; Emergency Provider Emergency Medicine; PCP Internal Medicine Cardiovascular Disease; Visit Provider Internal Medicine
DX: J44.1 Chronic obstructive pulmonary disease with (acute) exacerbation (principal); E87.1 Hypo-osmolality and hyponatremia; E11.649 Type 2 diabetes mellitus with hypoglycemia without coma; I10 Essential (primary) hypertension; E66.811 Obesity, class 1; J10.1 Influenza due to other identified influenza virus with other respiratory manifestations; E78.00 Pure hypercholesterolemia, unspecified; I25.10 Atherosclerotic heart disease of native coronary artery without angina pectoris; G25.1 Drug-induced tremor; Z68.31 Body mass index [BMI] 31.0-31.9, adult; Z79.02 Long term (current) use of antithrombotics/antiplatelets; Z79.84 Long term (current) use of oral hypoglycemic drugs; Z79.899 Other long term (current) drug therapy; Z87.891 Personal history of nicotine dependence; T48.6X5A Adverse effect of antiasthmatics, initial encounter; Y92.239 Unspecified place in hospital as the place of occurrence of the external cause
CPT/HCPCS: 36415; 71046; 80048; 82962; 83036; 83735; 83880; 84100; 84484; 85025; 85379; 87631; 93005; 94640; 94668; 94760; 97802; 99285; A4216

== ENCOUNTER 2024-11-29 07:58 | Inpatient (IN) | payer MEDICARE, OTHER, SELFPAY ==
[2024-11-29] VITALS (12 sets, daily range): BP systolic 153–175; BP diastolic 74–114; PULSE 81–116; RESP 13–19; TEMP 36.5–37.1; O2SAT 93–98; BMI 25.9; BMI 26.2
--- NOTE | 2024-11-29 08:18 | CT_ITS ---
EXAM: BRAIN/HEAD WITHOUT CONTRAST CLINICAL HISTORY: Several day history of confusion. COMPARISON: None. TECHNIQUE: Multiple axial tomographic images were obtained without intravenous contrast administration. Coronal and sagittal reconstruction was obtained as well. FINDINGS: Mild degree of cerebral atrophy in keeping with the patient's age. No focal lesion is seen. Calcification of the cavernous portions of the internal carotid arteries bilaterally. CT/Brain/Head without Contrast IMPRESSION: Mild degree of cerebral atrophy. No focal lesion is seen. Reading Location: [facility]
--- NOTE | 2024-11-29 08:18 | CT_ITS ---
PROCEDURE: ABDOMEN/PELVIS W IV CONT ONLY REASON FOR EXAM: General weakness. TECHNIQUE: Abdomen and pelvis CT with intravenous contrast. No oral contrast. IV CONTRAST: 100 cc of Isovue-300. COMPARISON: None. FINDINGS: Lung bases: Clear. Coronary artery calcification. Liver: Unremarkable. Gallbladder: Mildly distended gallbladder. No evidence of cholelithiasis. Spleen: Unremarkable. Pancreas: Unremarkable. Adrenals: Unremarkable. Kidneys: Unremarkable. Bladder: Distended urinary bladder. Prostatic enlargement with indentation of the bladder base. The prostate measures 4 cm by 5.3 cm. Central calcific densities within the prostate. Bowel: Unremarkable. Appendix: Normal. Lymph nodes: No suspicious lymph node enlargement. Vasculature: Mild diffuse atherosclerotic calcifications are noted. Peritoneum / Retroperitoneum: No ascites. No free air. Bones: Degenerative changes of the spine. CT/Abdomen/Pelvis W IV Cont ONLY IMPRESSION: Mildly distended gallbladder. No evidence of cholelithiasis. Distended urinary bladder. Prostatic enlargement with indentation of the bladder base. One or more dose reduction techniques were used (e.g., Automated exposure contr ol, adjustment of the mA and/or kV according to patient size, use of iterative reconstruction technique). Reading Location: [place] [id number]
--- NOTE | 2024-11-29 08:27 | EX.ED.DYSGE1 ---
HPI History of Present Illness Chief Complaint: Confusion Narrative Narrative: Patient is a 74-year-old male with past medical hypertension, CAD, type 2 diabetes, COPD who presents to the emergency department chief complaint of altered mental status. Patient's review of system was obtained by nursing staff and EMS as patient could not provide this therefore acute care caveat applies. Per EMS noted that the patient has been confused for the last several days and has had generalized weakness. They noted that he appears to be paranoid. Staff noted that he was recently in the hospital for upper respiratory infection recently as well. [facility] Medical History Hypertension CAD (coronary artery disease) Type 2 diabetes mellitus COPD (chronic obstructive pulmonary disease) Home Medications ?Medication ?Instructions ?Recorded ?Last Taken ?Type clopidogrel 75 mg tablet 75 mg PO DAILY 11/18/24 Unknown History lisinopril 5 mg tablet 5 mg PO DAILY 11/18/24 Unknown History metoprolol tartrate 50 mg tablet 50 mg PO DAILY 11/18/24 Unknown History simvastatin 40 mg tablet 40 mg PO DAILY 11/18/24 Unknown History doxycycline hyclate 100 mg capsule 100 mg PO BID #14 caps 11/20/24 Unknown Rx glimepiride 1 mg tablet 1 mg PO DAILY #60 tabs 11/20/24 Unknown Rx guaifenesin 600 mg tablet, 600 mg PO BID #20 tabs 11/20/24 Unknown Rx extended release 12 hr (Mucinex) metformin 1,000 mg tablet 1,000 mg PO BID 60 days #120 tabs 11/20/24 Unknown Rx prednisone 20 mg tablet 20 mg PO BID #10 tabs 11/20/24 Unknown Rx Allergy/AdvReac Type Severity Reaction Status Date / Time bee venom protein (honey Allergy Severe Hives Verified 11/29/24 08:05 bee) (bee sting) meperidine (From Demerol) Allergy Severe Other Verified 11/29/24 08:05 Social History household members: spouse housing: house Smoking Status: Former smoker ROS ROS ED ROS Narrative Review of systems unobtainable from patient secondary to his altered mental status therefore acute care caveat applies EXAM Physical Exam Narrative Exam Narrative: General: Patient is lying in bed rest comfortably did not appear to be acute distress Head: Atraumatic, normocephalic Eyes: PERRL bilaterally, EOMI bilaterally, no conjunctival injection noted Neck: Soft, supple, trachea midline Cardiovascular: Patient tachycardic with a regular rhythm no murmurs gallops rubs are noted Respiratory: Clear to auscultation bilaterally Abdomen: Soft, nondistended, no tenderness palpation Extremities: Patient has generalized weakness noted on exam he states that he cannot lift his legs or his arms as he is told not to do this even though he denies hearing voices or seeing things, radial pulses +2/4 in the bilateral extremities Neurological: Patient following commands knew that he was at the hospital. Skin: Warm, dry, intact no rashes or lesions noted Const Vital Signs: 11/29/24 07:59 11/29/24 08:04 11/29/24 08:18 Temperature 98.8 F 98.8 F Temperature Source Axillary Axillary Pulse Rate 116 H 116 H Respiratory Rate 16 16 Blood Pressure 153/114 H 153/114 H Blood Pressure Mean 127 127 Pulse Ox 97 97 Oxygen Delivery Method Room Air Room Air Room Air 11/29/24 08:58 11/29/24 09:04 11/29/24 09:56 Temperature 98.8 F 98.8 F Temperature Source Oral Oral Pulse Rate 108 H 98 Respiratory Rate 17 17 Blood Pressure 168/84 H 168/84 H 172/76 H Blood Pressure Mean 112 112 108 Pulse Ox 93 94 Oxygen Delivery Method Room Air Room Air 11/29/24 09:56 11/29/24 10:55 11/29/24 10:55 Temperature 98.8 F Temperature Source Oral Pulse Rate 98 Respiratory Rate 16 Blood Pressure 172/76 H 175/83 H 175/83 H Blood Pressure Mean 108 113 113 Pulse Ox 96 Oxygen Delivery Method Room Air 11/29/24 11:57 11/29/24 11:57 Temperature 98.8 F Temperature Source Oral Pulse Rate 96 Respiratory Rate 13 Blood Pressure 170/79 H 170/79 H Blood Pressure Mean 109 109 Pulse Ox 95 Oxygen Delivery Method Room Air MDM MDM MDM Narrative Medical decision making narrative: Patient is a 74-year-old male who presents to the department chief complaint of altered mental status. On the differential diagnose includes but not limited to UTI, electrolyte abnormality, pneumonia, intracranial hemorrhage. Once workup is obtained reviewed he will be reevaluated. Patient be given 30 cc/kg bolus of IV fluids which was at 8:20 AM. Patient CBC reviewed showed a leukocytosis of 11,000, hemoglobin 17.1, plate count to be normal at 263. Patient INR normal at 1, PT of 13.2. Patient sodium normal 137, potassium normal 4.8, creatinine normal at 0.85. Patient does have lactic acidosis of 2.1. Patient AST and ALT were 13 and 22 respectively, troponin was normal at 6. Patient is EKG reviewed by myself which showed sinus tachycardia evidence of right bundle branch block with a rate of 109 bpm. This was compared to EKG from 11/18/2024 showed evidence of right bundle branch block at that point time as well. Patient anion gap normal at 12. Patient's chest x-ray reviewed by myself and by radiology showed no acute cardiopulmonary processes. Patient CT head and brain reviewed which showed mild degree of cerebral atrophy no focal lesion noted. Patient CT abdomen pelvis with IV contrast showed mildly distended gallbladder no evidence of cholelithiasis. Distended urinary bladder. Prostatic enlargement with indentation of the bladder base. At 10:33 AM there is no identifiable source infection urinalysis still pending however patient will be given a gram of Rocephin. Patient's urinalysis reviewed and showed negative nitrates 25 leukocyte esterase with 1+ bacteria this was sent for culture once again he is given Rocephin. Given the patient's altered mental status generalized weakness, altered mental status and paranoia will admit the patient to the hospital further evaluation management. Will discuss with hospitalist Discussed case with hospitalist Dr. Anglin who will accept the patient for admission. Will per their request we will check ammonia level as well as a bladder scan if greater than 400 cc of urine we will place a Martinez catheter. Patient notified all question concerns answered. Lab Data Labs: Laboratory Results - last 24 hr 11/29/24 11/29/24 08:32 10:50 WBC 11.7 H RBC 5.51 Hgb 17.1 H Hct 50.4 MCV 91.5 MCH 31.0 MCHC 33.9 RDW Std Deviation 41.1 RDW Coeff of Rosemary 12.1 Plt Count 263 MPV 9.4 Immature Gran % (Auto) 0.300 Neut % (Auto) 85.0 H Lymph % (Auto) 8.7 L Bonner % (Auto) 5.6 Eos % (Auto) 0.1 Baso % (Auto) 0.3 Absolute Neuts (auto) 10.0 H Absolute Lymphs (auto) 1.02 Nucleated RBC % 0 PT 13.2 INR 1.0 APTT 21.4 L Sodium 137 Potassium 4.8 Chloride 104 Carbon Dioxide 21.0 Anion Gap 12 BUN 25 H Creatinine 0.85 Estim Creat Clear Calc 83.67 Est GFR (MDRD) Af Amer 113 Est GFR (MDRD) Non-Af 94 BUN/Creatinine Ratio 29.3 H Glucose 251 H Lactic Acid 2.1 H* Calcium 9.8 Total Bilirubin 1.10 H AST 13 L ALT 32 Alkaline Phosphatase 64 Troponin I High Sens 6 Total Protein 8.1 Albumin 3.7 Globulin 4.4 H Albumin/Globulin Ratio 0.8 L Urine Color Yellow Urine Clarity Clear Urine pH 5.0 Ur Specific Reseda 1.020 Urine Protein 100 H Urine Glucose (UA) 100 H Urine Ketones 150 A* Urine Occult Blood 25 H Urine Nitrite Negative Urine Bilirubin Negative Urine Urobilinogen Normal Ur Leukocyte Esterase 25 H Urine RBC 0-5 SEEN Urine WBC 0-5 SEEN Ur Squamous Epith Cells 0-5 SEEN Urine Bacteria 1+ Urine Mucus 3+ Radiography Diagnostic Testing: Clinical Impression(s) from Imaging Studies Abdomen/Pelvis CT 11/29/24 08:18 IMPRESSION: Mildly distended gallbladder. No evidence of cholelithiasis. Distended urinary bladder. Prostatic enlargement with indentation of the bladder base. One or more dose reduction techniques were used (e.g., Automated exposure control, adjustment of the mA and/or kV according to patient size, use of iterative reconstruction technique). Reading Location: [facility] 11/29/24 08:18 IMPRESSION: Mild degree of cerebral atrophy. No focal lesion is seen. Reading Location: [facility] Chest X-Ray 11/29/24 09:12 IMPRESSION: No radiographic evidence of acute cardiopulmonary disease Reading Location: [facility] Discharge Plan Triage Chief Complaint: Confusion ED Provider: Manuel Tuttle Dx/Rx/DC Orders Clinical Impression: Altered mental status, Generalized weakness Prescriptions: No Action clopidogrel 75 mg tablet 75 mg PO DAILY lisinopril 5 mg tablet 5 mg PO DAILY metoprolol tartrate 50 mg tablet 50 mg PO DAILY simvastatin 40 mg tablet 40 mg PO DAILY guaifenesin [Mucinex] 600 mg Tablet Extended Release 12hr 600 mg PO BID Qty: 20 0RF doxycycline hyclate 100 mg capsule 100 mg PO BID Qty: 14 0RF prednisone 20 mg tablet 20 mg PO BID Qty: 10 0RF metformin 1,000 mg tablet 1,000 mg PO BID 60 Days Qty: 120 0RF glimepiride 1 mg tablet 1 mg PO DAILY Qty: 60 0RF Primary Care Provider: CASANDRA SORIA Referrals: CASANDRA SORIA MD [Primary Care Provider] - Print Language: Belarusian Disposition Disposition: Acute Care Hospital [facility]
[2024-11-29 08:41] LABS: Absolute Lymphocyte Count 1.02 X10^3/uL (0.83-4.51); Basophil# 0.03 X10^3/uL; Basophil% 0.3 % (0-1); Eosinophil# 0.01 X10^3/uL; Eosinophils% 0.1 % (0-5); Hematocrit 50.4 % (40-54); Hemoglobin 17.1 g/dL (13.0-16.5); Lymphocyte # 1.02 X10^3/ul (0.83-4.51); Lymphocyte % 8.7 % (19-41); Mean Corp Hgb Conc 33.9 g/dL (32-36); Mean Corpuscular Volume 91.5 fL (80-94); Mean Platelet Vol. 9.4 fl (6.2-12.0); Monocyte# 0.65 X10^3/uL; Monocyte% 5.6 % (0-10); NRBC Flagged by Analyzer 0 % (0-5); Neutrophil # 9.95 X10^3/uL (2.7-7.7); Platelet Count 263 K/mm3 (150-450); RBC Distribution Width CV 12.1 % (11.6-14.6); RBC Distribution Width SD 41.1 fl (35.1-43.9); Red Blood Count 5.51 M/mm3 (4.6-6.2); White Blood Count 11.7 K/mm3 (4.4-11.0)
[2024-11-29 08:48] LABS: Prothrombin Time (Protime)PT. 13.2 SECONDS (11.7-14.9)
[2024-11-29 08:53] LABS: Partial Thromboplast Time 21.4 Seconds (24.1-36.2)
[2024-11-29 08:58] LABS: ALB/GLOB Ratio 0.8 RATIO (0.9-2.4); AST(SGOT) 13 U/L (15-37); Alanine Aminotransfer ALT/SGPT 32 U/L (16-61); Albumin, Serum 3.7 g/dL (3.2-5.0); Alkaline Phosphatase 64 U/L (45-117); Anion Gap 12 (5-15); BUN 25 mg/dL (7-18); BUN/Creat Ratio 29.3 RATIO (10-20); Calcium,Total 9.8 mg/dL (8.5-10.1); Chloride 104 mmol/L (98-107); Creatinine, Serum 0.85 mg/dL (0.70-1.30); EST Glomerular Filtration Rate 94 mL/min (>60); Est Glom Filt Rate - Afr Amer 113 mL/min (>60); Estimated Creatinine Clearance 83.67 ml/min; Globulin 4.4 g/dL (2.2-4.2); Glucose 251 mg/dL (74-106); Potassium 4.8 mmol/L (3.5-5.1); Protein, Total 8.1 g/dL (6.4-8.2); Sodium Level 137 mmol/L (136-145); Troponin-I HS 6 pg/mL (3.0-78.0)
[2024-11-29 09:11] LABS: Lactic Acid 2.1 mmol/L (0.4-1.9)
--- NOTE | 2024-11-29 09:12 | RAD_ITS ---
PROCEDURE: CHEST PA AND LATERAL REASON FOR EXAM: AMS TECHNIQUE: Frontal and lateral views of the chest. COMPARISON: 11/18/2024 FINDINGS: The heart size is normal. There are atherosclerotic calcifications of the thoracic aorta. The lungs are clear. The bones are unremarkable. RAD/Chest PA and Lateral IMPRESSION: No radiographic evidence of acute cardiopulmonary disease Reading Location: [place]
[2024-11-29] MEDS: 0.9% Normal Saline (1000mL) 1,000 ML 999 ML IV ×3 (09:24→11:30)
[2024-11-29] MEDS: Ceftriaxone 1 GM/50 ML BAG IV (10:48)
[2024-11-29 11:05] LABS: Color, Urine Yellow (Yellow); Glucose, Dipstick 100 mg/dl (Normal); Ketone-Dipstick 150 mg/dl (Negative); Leukocyte Esterase-Dipstick 25 /ul (Negative); Nitrite-Dipstick Negative (Negative); Occult Blood-Urine 25 /ul (Negative); Protein-Dipstick 100 mg/dl (Negative); Urine Bilirubin Dipstick Negative (Negative); Urine Clarity Clear (Clear); Urine Urobilinogen Normal (Normal)
[2024-11-29 11:07] LABS: Red Blood Cells-Urine 0-5 SEEN /hpf (0-5); Squamous Epithelial Cells - UA 0-5 SEEN /hpf (0-5); White Blood Cells 0-5 SEEN /hpf (0-5)
[2024-11-29 11:08] LABS: Bacteria 1+ /hpf (None Seen); Mucous, Urine 3+ /hpf (<or=2+)
[2024-11-29 12:36] LABS: Reflex Lactate? Y
[2024-11-29 13:26] LABS: Lactic Acid 1.3 mmol/L (0.4-1.9)
[2024-11-29 13:35] LABS: Free T3 2.3 pg/mL (2.18-3.98); T4 Free Direct 1.59 ng/dL (0.76-1.46); Thyroid Stim Hormone (TSH) 0.127 uIU/mL (0.358-3.740)
[2024-11-29] MEDS: 0.9% Normal Saline (1000mL) 1,000 ML 100 ML IV (15:41)
[2024-11-29] MEDS: 0.9% Saline Lock 10 ML Syringe IV (15:41)
--- NOTE | 2024-11-29 16:11 | CM.ED ---
Social Work SW attempted to interview patient to determine if all information provided on 11/18/2024 was still accurate, however patient was confused, agitated and unable to answer questions. SW attempted to contact , message left for a return call. Haleigh Gomez, COMPUTER SUPPORT ANALYST, BRUSHER OPERATOR
[2024-11-29 17:10] LABS: Bedside Glucose 156 mg/dL (74-106)
--- NOTE | 2024-11-29 17:27 | PCM.HP.STD ---
HPI - General General Date of Admission: 11/29/24 HPI Narrative FRANKLIN BROWN, is a 74 M who presents to the hospital with confusion. He knows he is in [place] but does not know where he is at in [place], he thinks is 2023 and he knows who he is but not how old he is as he thinks he is 34 years old. It is challenging to get him to comply with physical exam when I ask him to lift his arms he says that he was told he is not supposed to by a physician but he cannot tell me who or why. When he does attempt to lift his arms, which he can, they are very shaky and he struggles. He was recently hospitalized for influenza A in the beginning of this month and was sent home on doxycycline and steroids both of which she completed prior to this admission. He does have a slight leukocytosis to 11.7 and his hemoglobin is elevated to 17.1 and dictating for some dehydration especially as he has ketones in his urine despite having a blood sugar of only 251. An ammonia was normal and a TSH is low at 0.127, but his T4 is elevated 1.59 and is metabolically active T3 is normal at 2.3. Renal function is stable and his lactic acidosis improved with IV fluids BUN is slightly elevated at 25. CT of the brain was unremarkable and CT of the abdomen and pelvis demonstrated distended urinary bladder and a slightly distended gallbladder with no signs of cholecystitis or cholelithiasis. [facility] Medical History Hypertension CAD (coronary artery disease) Type 2 diabetes mellitus COPD (chronic obstructive pulmonary disease) Home Medications ?Medication ?Instructions ?Recorded ?Last Taken ?Type clopidogrel 75 mg tablet 75 mg PO DAILY 11/18/24 Unknown History lisinopril 5 mg tablet 5 mg PO DAILY 11/18/24 Unknown History metoprolol tartrate 50 mg tablet 50 mg PO DAILY 11/18/24 Unknown History simvastatin 40 mg tablet 40 mg PO DAILY 11/18/24 Unknown History glimepiride 1 mg tablet 1 mg PO DAILY #60 tabs 11/20/24 Unknown Rx metformin 1,000 mg tablet 1,000 mg PO BID 60 days #120 tabs 11/20/24 Unknown Rx guaifenesin 600 mg tablet, 600 mg PO BID cough 11/29/24 Unknown History extended release 12 hr (Mucinex) Allergy/AdvReac Type Severity Reaction Status Date / Time bee venom protein (honey Allergy Severe Hives Verified 11/29/24 08:05 bee) (bee sting) meperidine (From Demerol) Allergy Severe Other Verified 11/29/24 08:05 Family History unable to obtain unable to obtain Surgical History unable to obtain unable to obtain Social History household members: spouse housing: house Smoking Status: Former smoker ROS Review of Systems ROS Unobtainable: due to encephalopathy Vital Signs Vital Signs Vital Signs: 11/29/24 07:59 11/29/24 08:04 11/29/24 08:18 Temperature 98.8 F 98.8 F Temperature Source Axillary Axillary Pulse Rate 116 H 116 H Respiratory Rate 16 16 Blood Pressure 153/114 H 153/114 H Blood Pressure Mean 127 127 Pulse Ox 97 97 Oxygen Delivery Method Room Air Room Air Room Air 11/29/24 08:58 11/29/24 09:04 11/29/24 09:56 Temperature 98.8 F 98.8 F Temperature Source Oral Oral Pulse Rate 108 H 98 Respiratory Rate 17 17 Blood Pressure 168/84 H 168/84 H 172/76 H Blood Pressure Mean 112 112 108 Pulse Ox 93 94 Oxygen Delivery Method Room Air Room Air 11/29/24 09:56 11/29/24 10:55 11/29/24 10:55 Temperature 98.8 F Temperature Source Oral Pulse Rate 98 Respiratory Rate 16 Blood Pressure 172/76 H 175/83 H 175/83 H Blood Pressure Mean 108 113 113 Pulse Ox 96 Oxygen Delivery Method Room Air 11/29/24 11:57 11/29/24 11:57 11/29/24 13:00 Temperature 98.8 F 98.8 F Temperature Source Oral Oral Pulse Rate 96 97 Respiratory Rate 13 14 Blood Pressure 170/79 H 170/79 H 173/81 H Blood Pressure Mean 109 109 111 Pulse Ox 95 95 Oxygen Delivery Method Room Air Room Air 11/29/24 14:00 11/29/24 14:00 11/29/24 14:23 Temperature 97.7 F L 98.8 F Temperature Source Temporal Pulse Rate 96 81 Respiratory Rate 16 19 H Blood Pressure 166/74 H 166/74 H 157/75 H Blood Pressure Mean 104 104 102 Pulse Ox 96 97 Oxygen Delivery Method Room Air 11/29/24 15:05 11/29/24 16:00 Temperature 98.2 F Temperature Source Oral Pulse Rate 96 Respiratory Rate 17 Blood Pressure 157/75 H Blood Pressure Mean 102 Pulse Ox 94 Oxygen Delivery Method Room Air Room Air Weight Weight: 188 lb 7.924 oz Body Mass Index (BMI) 26.2 Physical Exam Narrative General: Alert, confused and disoriented HEENT: Atraumatic, PERRLA, EOMI, Normocephalic Oral: Moist Mucosa Neck: Supple, No JVD Lungs: Diminished normal air movement, No rhonchi, No wheeze, No rales Cardiovascular: Regular rate, Regular Rhythm, Normal S1, Normal S2, No murmurs Abdomen: Soft, Non Tender, Non-Distended, No Hepato-splenomegaly Extremities: No edema, Capillary Refill Less than 3 Seconds Skin: No rashes, No breakdown Musculoskeletal: No Tenderness to Palpation of Joints or Extremities Neurological: Difficult to obtain an accurate exam Psych/Mental Status: Flat, paranoid Results Lab / Micro Data 11/29/24 08:32 11/29/24 08:32 Labs: Laboratory Results - last 24 hr 11/29/24 08:32: WBC 11.7 H, RBC 5.51, Hgb 17.1 H, Hct 50.4, MCV 91.5, MCH 31.0, MCHC 33.9, RDW Std Deviation 41.1, RDW Coeff of Rosemary 12.1, Plt Count 263, MPV 9.4, Immature Gran % (Auto) 0.300, Neut % (Auto) 85.0 H, Lymph % (Auto) 8.7 L, Boundary % (Auto) 5.6, Eos % (Auto) 0.1, Baso % (Auto) 0.3, Absolute Neuts (auto) 10.0 H, Absolute Lymphs (auto) 1.02, Nucleated RBC % 0, PT 13.2, INR 1.0, APTT 21.4 L, Sodium 137, Potassium 4.8, Chloride 104, Carbon Dioxide 21.0, Anion Gap 12, BUN 25 H, Creatinine 0.85, Estim Creat Clear Calc 83.67, Est GFR (MDRD) Af Amer 113, Est GFR (MDRD) Non-Af 94, BUN/Creatinine Ratio 29.3 H, Glucose 251 H, Lactic Acid 2.1 H*, Calcium 9.8, Total Bilirubin 1.10 H, AST 13 L, ALT 32, Alkaline Phosphatase 64, Troponin I High Sens 6, Total Protein 8.1, Albumin 3.7, Globulin 4.4 H, Albumin/Globulin Ratio 0.8 L 11/29/24 10:50: Urine Color Yellow, Urine Clarity Clear, Urine pH 5.0, Ur Specific [place] 1.020, Urine Protein 100 H, Urine Glucose (UA) 100 H, Urine Ketones 150 A*, Urine Occult Blood 25 H, Urine Nitrite Negative, Urine Bilirubin Negative, Urine Urobilinogen Normal, Ur Leukocyte Esterase 25 H, Urine RBC 0-5 SEEN, Urine WBC 0-5 SEEN, Ur Squamous Epith Cells 0-5 SEEN, Urine Bacteria 1+, Urine Mucus 3+ 11/29/24 12:48: Lactic Acid 1.3 11/29/24 12:55: Ammonia 19.0, TSH 0.127 L, Free T4 1.59 H, Free T3 pg/dL 2.3 11/29/24 16:49: POC Glucose 156 H Imaging Radiology Impression Abdomen/Pelvis CT 11/29/24 08:18 IMPRESSION: Mildly distended gallbladder. No evidence of cholelithiasis. Distended urinary bladder. Prostatic enlargement with indentation of the bladder base. One or more dose reduction techniques were used (e.g., Automated exposure control, adjustment of the mA and/or kV according to patient size, use of iterative reconstruction technique). Reading Location: [facility] 11/29/24 08:18 IMPRESSION: Mild degree of cerebral atrophy. No focal lesion is seen. Reading Location: [facility] Chest X-Ray 11/29/24 09:12 IMPRESSION: No radiographic evidence of acute cardiopulmonary disease Reading Location: [facility] Assessment & Plan Assessment/Plan (1) Generalized weakness: (2) Altered mental status: PLAN: Plan 1. Generalized weakness and altered mental status ? Unclear as to the etiology of either at the moment. ? Will obtain a folic acid and B12 and will continue with IV fluids ? Will have nursing obtain a bladder scan and if is greater than [address] [place] ? There is no obvious etiology at the moment, cultures are pending ? His UA was not consistent with a UTI and he is not behaving as if he were septic as there is no obvious source of infection ? No headache or photophobia to indicate an encephalitis or meningitis at this time, does not appear that he is also been having seizures 2. Essential HTN/HLD ? Will hold his home blood pressure medications and his cholesterol medications ? They are pending verification ? Will monitor his blood pressure make adjustments as necessary 3. DM2 ? Continue sliding scale insulin ? Accu-Cheks ACHS ? Will monitor make adjustments as necessary DVT: Dandyx 75 minutes was spent on direct patient care, including documentation as well as chart review and collaboration with colleagues Charges/Coding Visit Charges Inpatient E&M: 98633 Init Hosp L3
[2024-11-29 20:46] LABS: Bedside Glucose 154 mg/dL (74-106)
[2024-11-30] MEDS: 0.9% Normal Saline (1000mL) 1,000 ML 100 ML IV (01:45)
[2024-11-30 02:17] VITALS: BP 158/76; PULSE 90; RESP 18; TEMP 36.6; O2SAT 97
--- NOTE | 2024-11-30 02:30 | NURSING ---
pt refusing bladder scan
--- NOTE | 2024-11-30 05:00 | NURSING ---
lab in to draw pt's am labs. pt yelling at them to get out of his room. this rn entered room to attempt deescalation. pt states it's illegal for you to turn on the lights. that hallway out there is illegal and it's lights are forbidden. you are not allowed to do the light, the right or the might because it is forbidden and illegal pt reassured, but remains unwilling to participate or cooperate with his plan of care.
--- NOTE | 2024-11-30 05:00 | NURSING ---
refusing bladder scan at this time.
--- NOTE | 2024-11-30 08:15 | NURSING ---
This Rn in pts room to take vitals and get blood sugar. Pt is adamit that we are here to hurt him and is stating that everything we do is illegal. this RN attempted to educate pt that he is in the hospital and that he is sick and we are trying to care for him. Pt again states that, that is illegal. pt refuses all care at this time. RN unable to obtain VS or Blood sugar. Bed low, bed alarm on
--- NOTE | 2024-11-30 10:31 | NURSING ---
This nurse in to pts room, pt was holding a urinal with urine in it, this nurse attempted to take urinal to dump in the toilet. pt refused to hand over urinal. Pt states if you dump this in the toilet this whole building will explode. This nurse asked why that would happen pt states I'm part of the 6%, I'm toxic, This (the urine) is toxic, this whole room is toxic. if you were to dump this outside it would burn a hole straight down to the bedrock. Pt also states that there is a short, old lady with white hair who keeps coming in and trying to get him to sign a paper. He is not sure what the paper says but says that the paper is illegal and everything in the room is illegal even him peeing in the urinal is illegal. Pt also states that if he were to have any metal and put that metal in the urinal the whole thing would catch fire and blow up. Pt continues to make sure remarks about his urine and his blood. Pt states this bandage on my finger is illegal and i cant even take off because its illegal and it will blow up because its toxic. Pt continues to ramble, Flight of ideas, but continues to come back to everything being illegal and the woman with the white hair.
[2024-11-30 14:01] VITALS: BP 167/133; PULSE 101; RESP 18; TEMP 36.8; O2SAT 94
--- NOTE | 2024-11-30 14:04 | NEURO.CONS ---
Assessment and Plan: Neuro Assessment/Plan FRANKLIN BROWN is a 74 M with a past medical history of recent influenza infection requiring steroids, CAD, COPD, being evaluated by Teleneurology for severe confusion and psychosis. Exam is difficult and as is history as patient is not cooperative but no clear abnormal movements and no evidence of focal deficitis. Unclear why the sudden psychosis, but would be concerned for psychosis after steroids, cannot rule out stroke, possible autoimmune reaction after influenza. Plan: - MRI Brain wo con - infection screen per primary team - recommend seroquel scheduled to assist with managing the psychosis. I personally attended this patient and spent a total time of 30minutes evaluating this patient including clinical assessment, review of chart, medical history imaging, and determining appropriate treatment and workup. HPI Consult Data Date of Consult: 12/02/24 HPI Narrative HPI Narrative: FRANKLIN BROWN, is a 74 M who presents to the hospital with confusion. He knows he is in [place] but does not know where he is at in [place], he thinks is 2023 and he knows who he is but not how old he is as he thinks he is 34 years old. It is challenging to get him to comply with physical exam when I ask him to lift his arms he says that he was told he is not supposed to by a physician but he cannot tell me who or why. When he does attempt to lift his arms, which he can, they are very shaky and he struggles. He was recently hospitalized for influenza A in the beginning of this month and was sent home on doxycycline and steroids both of which she completed prior to this admission. He does have a slight leukocytosis to 11.7 and his hemoglobin is elevated to 17.1 and dictating for some dehydration especially as he has ketones in his urine despite having a blood sugar of only 251. An ammonia was normal and a TSH is low at 0.127, but his T4 is elevated 1.59 and is metabolically active T3 is normal at 2.3. Renal function is stable and his lactic acidosis improved with IV fluids BUN is slightly elevated at 25. CT of the brain was unremarkable and CT of the abdomen and pelvis demonstrated distended urinary bladder and a slightly distended gallbladder with no signs of cholecystitis or cholelithiasis. Neurologic History: Patient refused to talk with me but stated that I was not someone he wanted to talk to. Thought perhaps I was psychiatry and told me he wanted me to go away. [facility] Medical History Hypertension CAD (coronary artery disease) Type 2 diabetes mellitus COPD (chronic obstructive pulmonary disease) Home Medications ?Medication ?Instructions ?Recorded ?Last Taken ?Type clopidogrel 75 mg tablet 75 mg PO DAILY 11/18/24 Unknown History lisinopril 5 mg tablet 5 mg PO DAILY 11/18/24 Unknown History metoprolol tartrate 50 mg tablet 50 mg PO DAILY 11/18/24 Unknown History simvastatin 40 mg tablet 40 mg PO DAILY 11/18/24 Unknown History glimepiride 1 mg tablet 1 mg PO DAILY Diabetes #60 tabs 11/20/24 Unknown Rx metformin 1,000 mg tablet 1,000 mg PO BID Diabetes 60 days 11/20/24 Unknown Rx #120 tabs guaifenesin 600 mg tablet, 600 mg PO BID cough 11/29/24 Unknown History extended release 12 hr (Mucinex) Allergy/AdvReac Type Severity Reaction Status Date / Time bee venom protein (honey Allergy Severe Hives Verified 11/29/24 08:05 bee) (bee sting) meperidine (From Demerol) Allergy Severe Other Verified 11/29/24 08:05 Family History unable to obtain Surgical History unable to obtain Social History household members: spouse housing: house Smoking Status: Former smoker Vital Signs Vital Signs Vital Signs: 11/29/24 14:23 11/29/24 15:05 11/29/24 16:00 Temperature 98.8 F 98.2 F Temperature Source Oral Pulse Rate 81 96 Respiratory Rate 19 H 17 Blood Pressure 157/75 H 157/75 H Blood Pressure Mean 102 102 Blood Pressure Source Blood Pressure Position Blood Pressure Location Pulse Ox 97 94 Oxygen Delivery Method Room Air Room Air 11/29/24 20:09 11/30/24 02:17 11/30/24 14:01 Temperature 97.9 F 98.2 F Temperature Source Oral Oral Pulse Rate 99 90 101 H Respiratory Rate 18 18 18 Blood Pressure 154/82 H 158/76 H 167/133 H Blood Pressure Mean 106 103 144 Blood Pressure Source Monitor Blood Pressure Position Semi-Fowlers Blood Pressure Location Left Arm Pulse Ox 98 97 94 Oxygen Delivery Method Room Air Room Air Room Air Weight Weight: 85.5 kg Body Mass Index (BMI) 26.2 EEG Results Procedure Details EEG Procedure Details: FRANKLIN BROWN is a 74 year old M with a past medical history of , who presents for evaluation of Electroencephalogram on DATE at TIME Physical Exam Narrative -? NEURO: -? Mental Status: The patient was alert, poorly oriented to situation but aware he is in the hospital. Was uanble to ask additional questions -? Language: speech is clear.? Naming, fluency, and comprehension intact. -? Cranial Nerves: EOMI horizontally, no facial asymmetry, -? Motor: moves arms spontaneously equally, would not cooperate with formal testing -? Sensation- deferred -? Coordination: deferred -? Gait- deferred Lab / Micro Data 11/29/24 08:32 11/29/24 08:32 Labs: Laboratory Results - last 24 hr 11/29/24 12:55: Folate 24.70 11/29/24 16:49: POC Glucose 156 H 11/29/24 20:25: POC Glucose 154 H Micro: Microbiology 11/29/24 10:50 Urine Catheter - Catheter Urine Culture - Preliminary Culture exhibits no growth. Active Medications Active Medications Active Medications: Current Medications Generic Name Dose Route Start Last Admin Trade Name Enzoq PRN Reason Stop Dose Admin Enoxaparin Sodium 40 mg 11/30/24 10:00 11/30/24 10:40 Enoxaparin 40 Mg/0.4 Ml Syringe SC Not Given DAILY DESTIN Glucagon 1 mg 11/29/24 15:07 Glucagon 1 Mg/Ml Syringe IM X1 PRN HYPOGLYCEMIA Protocol Dextrose 250 mls @ 0 mls/hr 11/29/24 15:07 Dextrose 10%-Water IV .Q0M PRN HYPOGLYCEMIA Protocol As Directed Sodium Chloride 100 mls @ 15 mls/hr 11/29/24 15:09 IV .Q6H40M PRN Saline Flush Sodium Chloride 100 mls @ 15 mls/hr 11/29/24 15:09 IV .Q6H40M PRN Additional IVPB Infusion Insulin Human Lispro 0 unit 02/18/25 16:00 11/30/24 11:53 Insulin Lispro 100 Unit/Ml Insuln.Pen SC Not Given ACHS DESTIN Protocol Sodium Chloride 10 - 40 ml 11/29/24 15:09 11/29/24 15:41 0.9% Saline Lock 10 Ml Syringe IV 10 ml UD PRN Administration SALINE FLUSH
--- NOTE | 2024-11-30 16:00 | CASEMGMT ---
Addendum entered by Tarah Saavedra 12/01/24 08:54: 11/30/24: PAT REED readmission note: Index admission: 11/18-11/20: acute hypoxic resp failure, COPD exac. + Flu A. Hx: COPD, DM, Htn. Lives w/ in 2-story home, [employer]. Pt indep and drives. Dc'd home w/Rx's for mucinex, prednisone, doxycyline, glimepiride, and metformin, which were sent to [facility]. Pt to f/u with Dr James Hopkins in one week and Dr Wolf. Current admission: 11/29/24: confusion w/dehydration and weakness. Original Note: PAT REED NOTE: Pt has been confused. PAT REED has went to pt's room several times today to talk with , but she has not been in room. PAT REED to f/u with tomorrow to discuss readmission and discharge planning. Azam NAVARRO RN, CM
--- NOTE | 2024-11-30 16:41 | PN_ITS ---
Subjective Subjective Patient seen and examined. Patient is very confused. He was quite aggressive and would not really answer questions. He refused physical examination and said he had not given anyone permission to be in his room or to examine him. Unable to do review of systems. He has remained hemodynamically stable. Objective Data Objective Data Vital Signs: Vital Signs Temp Pulse Resp BP Pulse Ox O2 Del Method 98.2 F 101 H 18 167/133 H 94 Room Air 11/30/24 14:01 11/30/24 14:01 11/30/24 14:01 11/30/24 14:01 11/30/24 14:01 11/30/24 14:01 Oxygen Delivery Method Room Air Weight: 188 lb 7.924 oz Body Mass Index (BMI) 26.2 Intake & Output: Intake and Output for Last 24 Hours 11/28/24 11/29/24 11/30/24 23:59 23:59 23:59 Intake Total 2965.95 / 2965.95 2000 / 2000 Output Total 365 / 365 500 / 500 Balance 2600.95 / 2600.95 1500 / 1500 Lab / Micro Data 11/29/24 08:32 11/29/24 08:32 Labs: Laboratory Results - last 24 hr 11/29/24 12:55: Folate 24.70 11/29/24 16:49: POC Glucose 156 H 11/29/24 20:25: POC Glucose 154 H Micro: Microbiology 11/29/24 10:50 Urine Catheter - Catheter Urine Culture - Preliminary Culture exhibits no growth. Physical Exam Narrative refused physical examination Const alert Constitutional Narrative: confused, not cooperative. Assessment & Plan Assessment/Plan (1) Altered mental status: PLAN: Plan #Acute encephalopathy * Etiology is unclear. Patient is very confused. He does not know where he is and did not want to be physically examined. * Vitamin B12 and folate levels are pending. CT of the brain showed no acute intracranial pathology. Urinalysis also showed no evidence of UTI. * Neurology consulted. Per neurology she is going to speak further to the patient's to get more history. If it turns out that this confusion is new then we will request an MRI of the brain to further workup as needed. * PT OT consult. Fall precautions. #Low TSH * TSH is low at 0.127 and free T4 is elevated at 1.59. Free T3 is however normal. Will get thyroid ultrasound to evaluate the thyroid as this is indicated of hyperactivity of the thyroid. * #Hypertension: On lisinopril and metoprolol. Will resume. #Hyperlipidemia: On statin. #Type 2 diabetes mellitus: On insulin sliding scale. Accuhecks ACHS. Also on glimepiride #History of CAD: On Plavix and statin. Will hold Plavix as per neurology if remains confused he will need a lumbar puncture. #DVT prophylaxis: Lovenox Charges/Coding Visit Charges Inpatient E&M: 15417 Subs Hosp L2
[2024-11-30 19:56] VITALS: BP 146/66; PULSE 97; RESP 18; TEMP 36.4; O2SAT 99
[2024-11-30] MEDS: Insulin Lispro 100 UNIT/ML INSULN.PEN SC (21:32)
[2024-11-30 23:19] VITALS: BP 177/92; PULSE 104; RESP 16; TEMP 36.6; O2SAT 98
[2024-11-30 23:24] VITALS: PULSE 104
[2024-12-01] VITALS (8 sets, daily range): BP systolic 140–160; BP diastolic 67–79; PULSE 77–93; RESP 14–18; TEMP 36.3–36.9; O2SAT 95–97
[2024-12-01] MEDS: Metoprolol Tartrate 50 MG Tablet PO ×2 (01:26→09:20)
[2024-12-01] MEDS: Insulin Lispro 100 UNIT/ML INSULN.PEN SC ×2 (06:10→23:11)
--- NOTE | 2024-12-01 09:00 | MRI_ITS ---
EXAM: BRAIN W/WO CONTRAST CLINICAL HISTORY: Confusion/AMS/acute generalized weakness COMPARISON: None. TECHNIQUE: PROCEDURE: Multiplanar sequences of the brain were obtained on a 1.5 Deana MRI system, including T1, T2, FLAIR, DWI, and ADC. No intravenous contrast was administered. IV CONTRAST: FINDINGS: MRI BRAIN: No intraparenchymal hemorrhage is evident. No focus of restricted diffusion is identified to suggest acute or early subacute ischemia. There is no extra-axial fluid collection, mass effect, or shift of midline structures. The basal cisterns are visualized. There is diffuse symmetric parenchymal volume loss with ex vacuo dilatation of the ventricles and prominence of the sulci.. There is no signal abnormality in the philippe matter. There are scattered foci of T2/FLAIR hyperintensities in the supratentorial deep white matter that are nonspecific but most likely related to chronic small vessels ischemic changes and appears out of proportion for patient's age. The midline structures demonstrate normal contours. The craniocervical junction is unremarkable. The flow voids of the large intracranial vessels are normal. The calvarium is unremarkable. The paranasal sinuses and mastoid air cells are clear. MRI/Brain W/WO Contrast IMPRESSION: 1. No MR evidence of acute ischemia. 2. Age-appropriate volume loss and remote small vessel ischemic changes Reading Location: [facility]
[2024-12-01] MEDS: Clopidogrel Bisulfate 75 MG Tablet PO (09:20)
[2024-12-01] MEDS: Lisinopril 5 MG Tablet PO (09:20)
[2024-12-01] MEDS: Enoxaparin 40 MG/0.4 ML Syringe SC (09:22)
--- NOTE | 2024-12-01 11:25 | CASEMGMT ---
Received message that pt Rose Marie wanted to talk about rehab options. TC to Rose Marie, she states that pt called her lastnight and stated he wanted to come home but that he was nonambulatory. Pt aware that therapy has not worked with pt. She is aware that pt will have a MRI this afternoon. She is agreeable to speak about a dc plan after these items are completed. 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 She states he took all others though. She states pt had followed up with PCP who is Dr. Monroe Wolf. 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 She states pt started with not having an appetite on Nov 24 and potentially may not have been drinking either and pt slowly declined. Pt returned to ER for AMS. Pt states pt reported feeling like fluid was shifting in his head lastnight. She mentions that pt mother had a cancer in her brain when she passed. RN CM to follow. Pt aware that RN CM or LACI will follow up with her after therapy and MRI. DC Plan: TBD pending therapy and MRI
--- NOTE | 2024-12-01 11:36 | CASEMGMT ---
Discharge Planning A list of?SNF providers including quality and resource use data and consistent with the patient's preferred geographic region, medical needs, and insurance network was created in [facility] Guide.? This list was provided to the SW. Christie Zhang Discharge Planning Asst.
[2024-12-01 11:46] LABS: Bedside Glucose 157 mg/dL (74-106)
[2024-12-01 11:56] LABS: Bedside Glucose 164 mg/dL (74-106)
--- NOTE | 2024-12-01 13:15 | PN_ITS ---
Subjective Subjective Patient seen and examined. He was much calmer today And able to answer questions. He denied any pain.. He denied any shortness of breath, fever or chills. Review of systems otherwise negative. He knows he is in the hospital and knows his name and knows his date of but does not know what year it is or who the president is. Has been hemodynamically stable. Objective Data Objective Data Vital Signs: Vital Signs Temp Pulse Resp BP Pulse Ox O2 Del Method 97.3 F L 77 14 145/78 H 97 Room Air 12/01/24 09:14 12/01/24 09:20 12/01/24 09:14 12/01/24 09:14 12/01/24 09:14 12/01/24 09:14 Oxygen Delivery Method Room Air Weight: 188 lb 7.924 oz Body Mass Index (BMI) 26.2 Intake & Output: Intake and Output for Last 24 Hours 11/29/24 11/30/24 12/01/24 23:59 23:59 23:59 Intake Total 2965.95 / 2965.95 2250 / 2450 300 / 300 Output Total 365 / 365 500 / 500 400 / 400 Balance 2600.95 / 2600.95 1750 / 1950 -100 / -100 Lab / Micro Data 11/29/24 08:32 11/29/24 08:32 Labs: Laboratory Results - last 24 hr 12/01/24 06:09: POC Glucose 157 H 12/01/24 11:31: POC Glucose 164 H Micro: Microbiology 11/29/24 09:40 Blood Culture (Wb) - Left Hand Blood Culture - Preliminary No growth in 48 hours. 11/29/24 08:32 Blood Culture (Wb) - Left Wrist Blood Culture - Preliminary No growth in 48 hours. 11/29/24 10:50 Urine Catheter - Catheter Urine Culture - Final Culture exhibits no growth. Physical Exam Const alert General Appearance: cooperative Orientation / Consciousness: lethargic HEENT normocephalic, head/scalp atraumatic, moist oral mucous membranes and oropharynx normal Eyes PERRL and EOMs intact bilaterally Neck no lymphadenopathy and supple Lymph Lymphatic: no lymphadenopathy noted and no lymphedema noted Resp normal respiratory effort, normal air movement and clear to auscultation bilaterally Cardio regular rate, regular rhythm, S1 normal heart sound, S2 normal heart sound and no murmurs GI normal to inspection, nondistended, normoactive bowel sounds, soft to palpation, non-tender and non-distended Extremity normal capillary refill, no clubbing, cyanosis or edema and no calf tenderness General Extremity: no tenderness to palpation of joints or extremities Skin General Skin Exam: no breakdown Neuro CN's II-XII intact bilaterally and no focal motor deficits Motor Exam: general weakness Psych thought process normal, cooperative and affect normal Appearance: appropriate Assessment & Plan Assessment/Plan (1) Altered mental status: PLAN: Plan #Acute encephalopathy * Etiology is unclear. Patient is calmer and more oriented today. * Vitamin B12 and folate levels are pending. CT of the brain showed no acute intracranial pathology. * MRI of the brain pending. EEG also pending. * Urinalysis also showed no evidence of UTI. * neurology on board. Await further recs * PT/OT on board. Fall precautions. * #Low TSH * TSH is low at 0.127 and free T4 is elevated at 1.59. Free T3 is however normal. * Thyroid USG done and pending. Will repeat TSH before doing any further aggressive workup. * #Hypertension: On lisinopril and metoprolol. #Hyperlipidemia: On statin. #Type 2 diabetes mellitus: On insulin sliding scale. Accuhecks ACHS. Also on glimepiride #History of CAD: On Plavix and statin. Will hold Plavix as per neurology if remains confused he will need a lumbar puncture. #DVT prophylaxis: Lovenox Charges/Coding Visit Charges Inpatient E&M: 53463 Subs Hosp L2
--- NOTE | 2024-12-01 14:25 | NURSING ---
talked with Primary RN Misty regarding rounding w/ Dr. Logan from tele neuro. [facility] reached out to you. she told us during her exam that she thinks he may have had a stroke. He's not had his MRI yet [facility] [id number]. supervisor carbon paper coating also informed=possible transfer MRI planned for 3P. Dr. Tiwari replied 'Yes, She wanted to switch MRI to with and without contrast. Asked Dr. Tiwari if we are transferring with NIH scores? Explained to Dr. Tiwari we do not do NIH scores on [facility]. questioned if there is a question of a stroke if patient would be transferred to another unit that does NIH scores. Dr. Jama response lets get the MRI and decide. We will get the answer with the MRI which he is getting done soon. Primary RN updated.
--- NOTE | 2024-12-01 15:11 | NURSING ---
pt states his oncology consultant is Dr. Monroe Wolf, phoned and per Dr. Wolf states that it is up to the Radiologuy
--- NOTE | 2024-12-01 15:14 | NURSING ---
pt states his licensed final expense agents is Dr. Monroe Wolf. [phone]. office phoned and per Dr. Wolf states I am not sure what equipment you use at your facility that is up to the radiologist to see if it would be safe for heart stents. Araceli CARTER notified and will follow up on.
[2024-12-01 15:54] LABS: T4 Free Direct 1.69 ng/dL (0.76-1.46); Thyroid Stim Hormone (TSH) 0.152 uIU/mL (0.358-3.740)
--- NOTE | 2024-12-01 16:42 | NURSING ---
spoke with MRI, states it will be approximately 1 hour until they are ready for pt MRI.
[2024-12-01 16:59] LABS: Bedside Glucose 159 mg/dL (74-106)
[2024-12-01] MEDS: QUEtiapine 25 MG Tablet PO (23:11)
[2024-12-01] MEDS: Atorvastatin Calcium 20 MG Tablet PO (23:11)
[2024-12-01 23:39] LABS: Bedside Glucose 151 mg/dL (74-106)
--- NOTE | 2024-12-02 01:23 | NEURO.PNOTE ---
Assessment and Plan: Neuro Assessment/Plan Assessment/Plan FRANKLIN BROWN is a 74 M with a past medical history of recent influenza infection requiring steroids, CAD, COPD, being evaluated by Teleneurology for severe confusion and psychosis. Exam is difficult and as is history as patient is not cooperative but no clear abnormal movements and no evidence of focal deficitis. Unclear why the sudden psychosis, but would be concerned for psychosis after steroids, cannot rule out stroke, possible autoimmune reaction after influenza. Plan: - MRI Brain wo con pending - infection screen per primary team - recommend seroquel scheduled to assist with managing the psychosis. I personally attended this patient and spent a total time of 30minutes evaluating this patient including clinical assessment, review of chart, medical history imaging, and determining appropriate treatment and workup. Subject: Neurology Subjective Pt is better today, did not get the seroquel. Will have intermittent psychosis. But today he states he is doing ok, does not remember coming to the hospital. EEG Results Procedure Details EEG Procedure Details: FRANKLIN BROWN is a 74 year old M with a past medical history of , who presents for evaluation of Electroencephalogram on DATE at TIME Objective Data Objective Data Vital Signs: Vital Signs Temp Pulse Resp BP Pulse Ox O2 Del Method 98.5 F 87 18 142/79 H 96 Room Air 12/01/24 14:59 12/01/24 14:59 12/01/24 14:59 12/01/24 14:59 12/01/24 16:46 12/01/24 14:59 Oxygen Delivery Method Room Air Weight: 85.5 kg Body Mass Index (BMI) 26.2 Intake & Output: Intake and Output for Last 24 Hours 11/30/24 12/01/24 12/02/24 23:59 23:59 23:59 Intake Total 2250 / 2450 300 / 300 Output Total 500 / 500 800 / 800 Balance 1750 / 1950 -500 / -500 Lab / Micro Data 11/29/24 08:32 11/29/24 08:32 Labs: Laboratory Results - last 24 hr 12/01/24 06:09: POC Glucose 157 H 12/01/24 11:31: POC Glucose 164 H 12/01/24 15:16: TSH 0.152 L, Free T4 1.69 H 12/01/24 16:37: POC Glucose 159 H 12/01/24 23:09: POC Glucose 151 H Micro: Microbiology 11/29/24 09:40 Blood Culture (Wb) - Left Hand Blood Culture - Preliminary No growth in 48 hours. 11/29/24 08:32 Blood Culture (Wb) - Left Wrist Blood Culture - Preliminary No growth in 48 hours. 11/29/24 10:50 Urine Catheter - Catheter Urine Culture - Final Culture exhibits no growth. Radiography Diagnostic Testing: Radiology Impression Brain MRI 12/01/24 09:00 IMPRESSION: 1. No MR evidence of acute ischemia. 2. Age-appropriate volume loss and remote small vessel ischemic changes Reading Location: [facility] Physical Exam Narrative -? NEURO: -? Mental Status: The patient was alert and oriented to place, and person but poorly to time. -? Language: speech is clear.? Naming, fluency, and comprehension intact. -? Cranial Nerves:. EOMI, visual nguyen full, no facial asymmetry, facial sensation intact, hearing intact, tongue midline -? Motor: normal bulk, tone, and strength throughout. No pronator drift or satelliting. Upper and lower extremities equal bilaterally. -? Detailed strength exam as performed by the nurse/RONY and witnessed by the physician: R L SA 5 5 EE 5 5 EF 5 5 WE WF [employer] 5 5 HF KE KF 5 5 DF PF -?Tremor on the LUE - Sensation- Intact to light touch bilaterally -? Coordination: slight atacia onthe LUE and LLE -? Gait- deferred
[2024-12-02 03:00] VITALS: BP 144/75; PULSE 90; RESP 16; TEMP 36.4; O2SAT 96
[2024-12-02] MEDS: Acetaminophen 325 MG Tablet 650 MG PO (04:43)
[2024-12-02 07:27] LABS: Bedside Glucose 134 mg/dL (74-106)
[2024-12-02 07:55] VITALS: BP 163/77; PULSE 98; RESP 18; TEMP 36.9; O2SAT 98
[2024-12-02 08:22] LABS: Bedside Glucose 130 mg/dL (74-106)
[2024-12-02] MEDS: Enoxaparin 40 MG/0.4 ML Syringe SC (09:04)
--- NOTE | 2024-12-02 09:21 | NURSING ---
Pt alert and able to respond to yes/no questions. Able to drink water through straw, no issues. Attempted x2 to administered am pills whole, pt did not open mouth. Attempted x1 to administer pills crushed in jelly. Pt responded with a verbal no when asked if he wanted medications. Pt educated on reason for medication, pt still refused.
--- NOTE | 2024-12-02 11:02 | EKG12_ITS ---
Test Reason : CP Blood Pressure : */* mmHG Vent. Rate : 94 BPM Atrial Rate : 94 BPM P-R Int : 198 ms QRS Dur : 136 ms QT Int : 374 ms P-R-T Axes : 54 31 -4 degrees QTcB Int : 467 ms Normal sinus rhythm Right bundle branch block Possible Inferior infarct (cited on or before 29-Nov-2024) Abnormal ECG When compared with ECG of 29-Nov-2024 08:32, No significant change was found Confirmed by Carloz Lozada ([id number]), editor sound JACQUES LEPE ([id number]) on 12/05/2024 10:40:23 AM Referred By: ALBARO Confirmed By: Carloz Lozada
--- NOTE | 2024-12-02 11:27 | CASEMGMT ---
Addendum entered by Bertha Corey 12/02/24 16:15: Social Work- SW received a call from pt who reports that if pt needs a SNF, she would like [facility]. Pt had previously spoken with bedside nurse who shared that pt may be transferred; pt reports that she does not want pt to transfer out of town. SW encouraged pt to discuss her concerns with physician. SW updated bedside nurse. PRIYANKA Rodriguez Original Note: Social Work- SW met with pt, who was only able to make sounds in response to questions. Pt was teary. SW offered support and encouragement. SW called pt who reports that she was in this morning and will be back in tomorrow. Pt requests that SW leave the list of SNF providers including quality and resource use data and consistent with the patient?s preferred geographic region, medical needs, and insurance network from the [employer] Guide. SW provided education that pt has had three midnights and would be able to discharge when medically ready. LACI asked to make 4 selections off list and shared that there will be a addiction social worker on the floor Thursday, but not Thursday. SW remains available to follow. PRIYANKA Rodriguez
[2024-12-02 11:29] LABS: Bedside Glucose 143 mg/dL (74-106)
[2024-12-02 12:51] LABS: Troponin-I HS 9 pg/mL (3.0-78.0)
[2024-12-02 14:17] VITALS: BP 152/79; PULSE 87; RESP 16; TEMP 36.6; O2SAT 97
[2024-12-02 14:29] LABS: Troponin-I HS 7 pg/mL (3.0-78.0)
--- NOTE | 2024-12-02 15:17 | NURSING ---
tele neurology just evaluated pt
--- NOTE | 2024-12-02 15:49 | MRI_ITS ---
PROCEDURE: MRI thoracic spine without and with IV contrast REASON FOR EXAM: Encephalopathy, pain TECHNIQUE: Multisequence multiplanar MR images of the thoracic spine were obtained before and after the administration of intravenous contrast. Imaging sequences were performed to best displaced suspected pathology. COMPARISON: None. FINDINGS: Motion degraded exam. Vertebral body heights are preserved. Negative for fracture or marrow edema. Prominent hemangioma in the T2 vertebral body. Alignment is within normal limits. Spinal cord is of normal caliber, contour and signal intensity within the limits of motion artifact. No focal disc abnormality, spinal stenosis or significant foraminal narrowing. Mild paraspinal muscle atrophy. No suspicious enhancement as visualized. MRI/Spine Thoracic W/WO Contrast IMPRESSION: Motion degraded exam. 1. Negative for fracture. Normal cord signal. 2. No focal disc abnormality, spinal stenosis or foraminal narrowing. Reading Location: [facility]
--- NOTE | 2024-12-02 15:49 | MRI_ITS ---
PROCEDURE: MRI cervical spine without IV contrast REASON FOR EXAM: Pain, encephalopathy TECHNIQUE: Multisequence multiplanar MR images of the cervical spine were obtained without the administration of intravenous contrast. COMPARISON: None. FINDINGS: Motion degraded exam. Vertebral body heights are within normal limits. Negative for fracture or marrow replacement. Several vertebral body hemangiomas noted. Alignment is maintained. Spinal cord is of normal caliber, contour and signal intensity. No paraspinal mass. C2-3: No focal disc abnormality, spinal stenosis or foraminal narrowing. Bilateral facet arthrosis. C3-4: No focal disc abnormality, spinal stenosis or foraminal narrowing. Bilateral facet arthrosis. C4-5: Tiny central disc protrusion and annular fissure. No significant spinal stenosis or foraminal narrowing. Bilateral facet arthrosis. C5-6: Small posterior disc osteophyte complex. Mild uncovertebral and facet arthrosis. No significant spinal stenosis. Mild bilateral foraminal narrowing. C6-7: Posterior disc osteophyte complex. Bilateral uncovertebral arthrosis. No significant spinal stenosis or foraminal narrowing. C7-T1: No focal disc abnormality, spinal stenosis or foraminal narrowing. MRI/Spine Cervical (Routine) IMPRESSION: Motion degraded exam. 1. No significant spinal stenosis or foraminal narrowing. 2. Intact cord signal. Negative for fracture. Reading Location: [facility]
--- NOTE | 2024-12-02 15:56 | PN_ITS ---
Subjective Subjective Patient seen and examined. He remains very confused and was much less communicative today. 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 He has otherwise remained hemodynamically stable Objective Data Objective Data Vital Signs: Vital Signs Temp Pulse Resp BP Pulse Ox O2 Del Method 97.8 F 87 16 152/79 H 97 Room Air 12/02/24 14:17 12/02/24 14:17 12/02/24 14:17 12/02/24 14:17 12/02/24 14:17 12/02/24 14:17 Oxygen Delivery Method Room Air Weight: 188 lb 7.924 oz Body Mass Index (BMI) 26.2 Intake & Output: Intake and Output for Last 24 Hours 11/30/24 12/01/24 12/02/24 23:59 23:59 23:59 Intake Total 2250 / 2450 400 / 400 100 / 100 Output Total 500 / 500 1100 / 1100 500 / 500 Balance 1750 / 1950 -700 / -700 -400 / -400 Lab / Micro Data 11/29/24 08:32 11/29/24 08:32 Labs: Laboratory Results - last 24 hr 12/01/24 16:37: POC Glucose 159 H 12/01/24 23:09: POC Glucose 151 H 12/02/24 07:04: POC Glucose 134 H 12/02/24 07:45: POC Glucose 130 H 12/02/24 11:11: POC Glucose 143 H 12/02/24 12:11: Troponin I High Sens 9 12/02/24 13:55: Troponin I High Sens 7 Micro: Microbiology 11/29/24 09:40 Blood Culture (Wb) - Left Hand Blood Culture - Preliminary No growth in 48 hours. 11/29/24 08:32 Blood Culture (Wb) - Left Wrist Blood Culture - Preliminary No growth in 48 hours. 11/29/24 10:50 Urine Catheter - Catheter Urine Culture - Final Culture exhibits no growth. Radiography Diagnostic Testing: Radiology Impression Brain MRI 12/01/24 09:00 IMPRESSION: 1. No MR evidence of acute ischemia. 2. Age-appropriate volume loss and remote small vessel ischemic changes Reading Location[facility] Physical Exam Const alert Constitutional Narrative: confused, not very cooperative. General Appearance: cooperative Orientation / Consciousness: lethargic HEENT normocephalic, head/scalp atraumatic, moist oral mucous membranes and oropharynx normal Eyes PERRL and EOMs intact bilaterally Neck no lymphadenopathy and supple Lymph Lymphatic: no lymphadenopathy noted and no lymphedema noted Resp normal respiratory effort, normal air movement and clear to auscultation bilaterally Cardio regular rate, regular rhythm, S1 normal heart sound, S2 normal heart sound and no murmurs GI normal to inspection, nondistended, normoactive bowel sounds, soft to palpation, non-tender and non-distended Extremity normal capillary refill, no clubbing, cyanosis or edema and no calf tenderness General Extremity: no tenderness to palpation of joints or extremities Skin General Skin Exam: no breakdown Neuro CN's II-XII intact bilaterally and no focal motor deficits Neuro Narrative: confused, flat affect, muscle rigidity. Moves muscles spontaneously, but not following commands Motor Exam: general weakness Psych Psych Narrative: confused Assessment & Plan Assessment/Plan (1) Altered mental status: PLAN: Plan #Acute encephalopathy * Etiology is unclear. patient is more confused and lethargic today. * Vitamin B12 and folate levels are pending. CT of the brain showed no acute intracranial pathology. * MRI of the brain also showed no evidence of ischemia and showed age- appropriate volume loss and remote small vessel ischemic changes. EEG also pending. * Urinalysis also showed no evidence of UTI. * neurology reviewed patient today and recommended that patient be transferred to tertiary facility as they feel he needs tertiary center evaluation and LP. * transfer initiated to [facility] and [facility] * Neurology also recommends getting MRI of the cervical and thoracic spine with and without contrast for further evaluation. * Plavix currently on hold in full LP but will not be done until Thursday. * PT/OT on board. Fall precautions. * #Low TSH * TSH is low at 0.127 and free T4 is elevated at 1.59. Free T3 is however normal. Repeat TSH still showed low TSH and elevated free T4 * THyroid ultrasound ordered but was canceled because patient refused. * Thyroid peroxidase and thyroid antibodies ordered. * Thyroid uptake scan ordered but canot be done since patient recently had contrast with MRI brain * * #Hypertension: On lisinopril and metoprolol. #Hyperlipidemia: On statin. #Type 2 diabetes mellitus: On insulin sliding scale. Accuhecks ACHS. Also on glimepiride #History of CAD: On Plavix and statin. Will hold Plavix as per neurology if remains confused he will need a lumbar puncture. #DVT prophylaxis: Lovenox DIsposition: * Neurology recommends transfer to tertiary center. Neurologist Dr. Forrester to help facilitate transfer at [facility]. I called patient's Rose Marie ([phone]) to update her and let her know about neurologist recommendation for transfer. * I consulted the neurology is helping facilitate patient getting a bed at [facility]. is however adamant that she does not want him to go to [facility] as it is too far away and she does not know how long he will be in the hospital there and wants to go and be visiting him. * I explained to that I was also trying to transfer to [facility] or [facility] and that it would be helpful patient to get in wherever he got a bed first as any delays in transferring due to 's preference of facility would be amicable to his care. She however still insist that she wants him to go to [place] or [place]. Plan is to transfer patient soon as possible. * Charges/Coding Visit Charges Inpatient E&M: 15989 [facility] Hosp L3
--- NOTE | 2024-12-02 16:37 | NURSING ---
[facility] transfer center phoned to unit, requesting pt face sheet/demographics be faxed to them. [place] aware and has fax number.
[2024-12-02 16:57] LABS: Bedside Glucose 136 mg/dL (74-106)
--- NOTE | 2024-12-02 17:55 | NURSING ---
per Dr. Tiwari request: pt spouse phoned and informed that [facility] has a bed for the patient. pt spouse Rose Marie states she is agreeable for pt to go to tertiary care center [facility]. Dr. Tiwari informed as such as well.
--- NOTE | 2024-12-02 18:02 | NURSING ---
Per MRI, pt will probably be down there for about another hour. [facility] transfer information: [facility] 11th floor. room 1173 phone number to give nurse to nurse report; [phone]
--- NOTE | 2024-12-02 18:13 | NURSING ---
phoned [facility], unable to give nurse to nurse report at this time. Manasa who is clerical secretary states the charge nurse isnt able to answer her telephone at this time so she must be in a patient room. Phone number to [facility] provided to clerical secretary and said nurse requesting return phone call when charge nurse is avaiable. Home Assessment Nurse Manasa states she will give information to the charge nurse as soon as she is available.
--- NOTE | 2024-12-02 19:06 | NURSING ---
phoned pt spouse Rose Marie and updated on POC/room number/phone number
--- NOTE | 2024-12-02 19:13 | NURSING ---
phoned [facility] in attempted to give nurse to nurse report, charge nurse unable to take at this time. membership secretary obtained [facility] phone number and states she will give to charge nurse to call to [facility]
[2024-12-02 19:16] LABS: Amphetamine Urine NEGATIVE (<1000 ng/mL); Barbiturate Urine VISTA NEGATIVE (< 200 ng/mL); Benzodiazepine Urine VISTA NEGATIVE (< 200 ng/mL); Cocaine Urine VISTA NEGATIVE (< 300 ng/mL); Ecstacy Urine VISTA NEGATIVE (< 500 ng/mL); Methadone Urine VISTA NEGATIVE (< 300 ng/mL); Opiates Urine NEGATIVE (< 300 ng/mL); PCP Urine NEGATIVE (< 25 ng/mL); THC Urine VISTA NEGATIVE (< 50 ng/mL); Vista UDS pH Range 4
[2024-12-02] MEDS: Ceftriaxone 1 GM/50 ML BAG IV (20:08)
[2024-12-02 20:15] VITALS: BP 163/75; PULSE 95; RESP 16; TEMP 36.8; O2SAT 96
[2024-12-02 21:16] LABS: Troponin-I HS 9 pg/mL (3.0-78.0)
[2024-12-02] MEDS: QUEtiapine 25 MG Tablet PO (21:42)
[2024-12-02] MEDS: Atorvastatin Calcium 20 MG Tablet PO (21:42)
[2024-12-02 22:01] LABS: Bedside Glucose 144 mg/dL (74-106)
--- NOTE | 2024-12-02 22:30 | NURSING ---
pt breanna sent to security per pt (juancho) request. juancho notified that kulwinderchristina will be in security in the ER. she stated she will pick it up 12/03
--- NOTE | 2024-12-02 22:45 | PN.NEURO_ITS ---
Assessment and Plan: Neuro Assessment/Plan Assessment/Plan FRANKLIN BROWN is a 74 M with a past medical history of recent influenza infection requiring steroids, CAD, COPD, being evaluated by Teleneurology for severe confusion and psychosis. Exam is difficult and as is history as patient is not cooperative but no clear abnormal movements and no evidence of focal deficitis. Unclear why the sudden psychosis, but would be concerned for psychosis after steroids, cannot rule out stroke, possible autoimmune reaction after influenza. Plan: - consider MRI cervical and thoracic spine w/wo con - consider LP - will consider stopping seroquel if patient continues to worsen tomorrow Consider transfer for LP and to evaluate for other causes of rigidity and confusion. I personally attended this patient and spent a total time of 30minutes evaluating this patient including clinical assessment, review of chart, medical history imaging, and determining appropriate treatment and workup. Subject: Neurology Subjective PAtient continues to deteriorate EEG Results Procedure Details EEG Procedure Details: FRANKLIN BROWN is a 74 year old M with a past medical history of , who presents for evaluation of Electroencephalogram on DATE at TIME Objective Data Objective Data Vital Signs: Vital Signs Temp Pulse Resp BP Pulse Ox O2 Del Method 98.2 F 95 16 163/75 H 96 Room Air 12/02/24 20:15 12/02/24 20:15 12/02/24 20:15 12/02/24 20:15 12/02/24 20:15 12/02/24 20:15 Oxygen Delivery Method Room Air Weight: 85.5 kg Body Mass Index (BMI) 26.2 Intake & Output: Intake and Output for Last 24 Hours 11/30/24 12/01/24 12/02/24 23:59 23:59 23:59 Intake Total 2250 / 2450 400 / 400 200 / 200 Output Total 500 / 500 1100 / 1100 650 / 650 Balance 1750 / 1950 -700 / -700 -450 / -450 Lab / Micro Data 11/29/24 08:32 11/29/24 08:32 Labs: Laboratory Results - last 24 hr 12/01/24 23:09: POC Glucose 151 H 12/02/24 07:04: POC Glucose 134 H 12/02/24 07:45: POC Glucose 130 H 12/02/24 11:11: POC Glucose 143 H 12/02/24 12:11: Troponin I High Sens 9 12/02/24 13:55: Troponin I High Sens 7 12/02/24 16:35: Urine Opiates Screen NEGATIVE, Urine Methadone Screen NEGATIVE, Ur Barbiturates Screen NEGATIVE, Ur Phencyclidine Scrn NEGATIVE, Ur Amphetamines Screen NEGATIVE, MDMA (Ecstasy) Screen NEGATIVE, U Benzodiazepines Scrn NEGATIVE, Urine Cocaine Screen NEGATIVE, U Cannabinoids Screen NEGATIVE, Ur Drug Screen Comment 12/02/24 16:36: POC Glucose 136 H 12/02/24 20:44: Troponin I High Sens 9 12/02/24 21:41: POC Glucose 144 H Micro: Microbiology 11/29/24 09:40 Blood Culture (Wb) - Left Hand Blood Culture - Preliminary No growth in 48 hours. 11/29/24 08:32 Blood Culture (Wb) - Left Wrist Blood Culture - Preliminary No growth in 48 hours. 11/29/24 10:50 Urine Catheter - Catheter Urine Culture - Final Culture exhibits no growth. Radiography Diagnostic Testing: Radiology Impression Cervical Spine MRI 12/02/24 15:49 IMPRESSION: Motion degraded exam. 1. No significant spinal stenosis or foraminal narrowing. 2. Intact cord signal. Negative for fracture. Reading Location: [facility] [place] Thoracic Spine MRI 12/02/24 15:49 IMPRESSION: Motion degraded exam. 1. Negative for fracture. Normal cord signal. 2. No focal disc abnormality, spinal stenosis or foraminal narrowing. Reading Location: [facility] [place] Physical Exam Narrative -? NEURO: -? Mental Status: The patient very somnolent, no longer oriented to time or place. -? Language: speech is very dysarthric -? Cranial Nerves:. EOMI, no facial asymmetry -? Motor: When lifting the UE, they drift to the bed, there is some drift and antigravity in b/l UE LE will drop to bed Tone elevated on the UE slightly, R>L b/l LE very rigid, L>R -?
[2024-12-03 01:33] VITALS: BP 144/74; PULSE 93; RESP 16; TEMP 36.9; O2SAT 95
--- NOTE | 2024-12-03 03:40 | NURSING ---
[facility] called for updated report. ambulance here to get pt. juancho called to inform her that pt leaving now for [facility].
--- NOTE | 2024-12-03 08:37 | DS.PCM_ITS ---
Providers Date of Admission: 11/29/24 Date of Discharge: 12/03/24 Primary Care Physician: CASANDRA SORIA MD Consultations 11/30/24 10:50 Neurology [Consult: Tele-Neurology] Routine Consulting Provider: [facility] Reason for Consult: acute encephalopathy EMERGENT Consult: No Notified: Yes Date Notified: 11/30/24 Time Notified: 11:00 Method of Notification: Answering Service Nursing Unit Staff Notify [facility] of Tele-Neurology Consult: Yes Reason For Visit: CONFUSION WITH DEHYDRATION AND WEAKNESS Diagnosis Discharge Diagnosis (1) Altered mental status: Status: Acute Code(s): R41.82 - Altered mental status, unspecified Plan #Acute encephalopathy * Etiology is unclear. patient is more confused and lethargic today. * Vitamin B12 and folate levels are pending. CT of the brain showed no acute intracranial pathology. * MRI of the brain also showed no evidence of ischemia and showed age- appropriate volume loss and remote small vessel ischemic changes. EEG also pending. * Urinalysis also showed no evidence of UTI. * neurology reviewed patient today and recommended that patient be transferred to tertiary facility as they feel he needs tertiary center evaluation and LP. * transfer initiated to [facility] and [facility] * Neurology also recommends getting MRI of the cervical and thoracic spine with and without contrast for further evaluation. * Plavix currently on hold in full LP but will not be done until Thursday. * PT/OT on board. Fall precautions. * #Low TSH * TSH is low at 0.127 and free T4 is elevated at 1.59. Free T3 is however normal. Repeat TSH still showed low TSH and elevated free T4 * THyroid ultrasound ordered but was canceled because patient refused. * Thyroid peroxidase and thyroid antibodies ordered. * Thyroid uptake scan ordered but canot be done since patient recently had contrast with MRI brain * * #Hypertension: On lisinopril and metoprolol. #Hyperlipidemia: On statin. #Type 2 diabetes mellitus: On insulin sliding scale. Accuhecks ACHS. Also on glimepiride
--- NOTE | 2024-12-03 08:37 | PCM.DC.SUM ---
Providers Date of Admission: 11/29/24 Date of Discharge: 12/03/24 Primary Care Physician: CASANDRA SORIA MD Consultations 11/30/24 10:50 Neurology [Consult: Tele-Neurology] Routine Consulting Provider: [facility] Reason for Consult: acute encephalopathy EMERGENT Consult: No MD Notified: Yes Date Notified: 11/30/24 Time Notified: 11:00 Method of Notification: Answering Service Nursing Unit Staff Notify [facility] of Tele-Neurology Consult: Yes Reason For Visit: CONFUSION WITH DEHYDRATION AND WEAKNESS Diagnosis Discharge Diagnosis (1) Altered mental status: Status: Acute Code(s): R41.82 - Altered mental status, unspecified Plan #Acute encephalopathy Etiology is unclear. patient is more confused and lethargic today. Vitamin B12 and folate levels are pending. CT of the brain showed no acute intracranial pathology. MRI of the brain also showed no evidence of ischemia and showed age-appropriate volume loss and remote small vessel ischemic changes. EEG also pending. Urinalysis also showed no evidence of UTI. neurology reviewed patient today and recommended that patient be transferred to tertiary facility as they feel he needs tertiary center evaluation and LP. transfer initiated to [facility] and [facility] Neurology also recommends getting MRI of the cervical and thoracic spine with and without contrast for further evaluation. Plavix currently on hold in full LP but will not be done until Thursday. PT/OT on board. Fall precautions. #Low TSH TSH is low at 0.127 and free T4 is elevated at 1.59. Free T3 is however normal. Repeat TSH still showed low TSH and elevated free T4 THyroid ultrasound ordered but was canceled because patient refused. Thyroid peroxidase and thyroid antibodies ordered. Thyroid uptake scan ordered but canot be done since patient recently had contrast with MRI brain #Hypertension: On lisinopril and metoprolol. #Hyperlipidemia: On statin. #Type 2 diabetes mellitus: On insulin sliding scale. Accuhecks ACHS. Also on glimepiride #History of CAD: On Plavix and statin. Will hold Plavix as per neurology if remains confused he will need a lumbar puncture. #DVT prophylaxis: Lovenox DIsposition: Neurology recommends transfer to tertiary center. Neurologist Dr. Forrester to help facilitate transfer at [facility]. I called patient's Rose Marie ([phone]) to update her and let her know about neurologist recommendation for transfer. I consulted the neurology is helping facilitate patient getting a bed at [facility]. is however adamant that she does not want him to go to [facility] as it is too far away and she does not know how long he will be in the hospital there and wants to go and be visiting him. I explained to that I was also trying to transfer to [place] or [facility] and that it would be helpful patient to get in wherever he got a bed first as any delays in transferring due to 's preference of facility would be amicable to his care. She however still insist that she wants him to go to [place] or [place]. Plan is to transfer patient soon as possible. Medications at Discharge Home Medications clopidogrel 75 mg tablet 75 mg PO DAILY 11/18/24 lisinopril 5 mg tablet 5 mg PO DAILY 11/18/24 metoprolol tartrate 50 mg tablet 50 mg PO DAILY 11/18/24 simvastatin 40 mg tablet 40 mg PO DAILY 11/18/24 glimepiride 1 mg tablet 1 mg PO DAILY Diabetes #60 tabs 11/20/24 metformin 1,000 mg tablet 1,000 mg PO BID Diabetes 60 days #120 tabs 11/20/24 guaifenesin 600 mg tablet, extended release 12 hr (Mucinex) 600 mg PO BID cough 11/29/24 Hospital Course Operations None Procedures None Summary of Care Provided Minutes Spent on Discharge: 55 Hospital Course: Patient is a 74-year-old male with a past medical history as outlined was admitted through the ED on 11/29/2024 with complaint of confusion. Patient was only alert to place was not alert to person or time. He could not give much of a history otherwise due to his confusion. On admission ammonia level was normal and TSH was low at 0.127. T4 was mildly elevated. T3 was however normal. His renal function was stable. He had mild lactic acidosis but this subsequently improved with hydration. CT of the brain showed no acute intracranial pathology and CT of the abdomen and pelvis showed a distended urinary bladder and slightly distended gallbladder with no evidence of cholecystitis or cholelithiasis. Was admitted to be managed for acute encephalopathy of unclear etiology. Vitamin B12 and folic acid levels were normal. Urinalysis also which did not show any evidence of UTI. Neurology was consulted. Patient subsequently became agitated and very paranoid. MRI of the brain done showed no evidence of ischemia and showed age-appropriate volume loss and remote small vessel ischemic changes. EEG done also showed no acute pathology and no evidence of seizure. Patient subsequently became very confused and so neurology recommended transfer to tertiary facility. Of note in light of the low TSH there was concern for high pair thyroidism and thyrotoxicosis. Thyroid ultrasound was ordered but was not done because patient refused. Thyroid peroxidase and thyroid antibodies were ordered and were pending at time of discharge. Thyroid uptake scan was also ordered but could not be done as patient had recently had contrast with the MRI brain. Patient was accepted at [facility] and was transferred there on 12/03/2024. Patient was transferred at [facility] on 12/03/2024 the patient was not seen by this hospitalist before transfer. He was seen on 12/02/2024. Physical Exam Narrative Patient not seen on 12/03/2024 prior to his transfer to [facility] at 3:40 AM. Weight / BMI Weight Weight: 188 lb 7.924 oz Body Mass Index (BMI) 26.2 ABG / Lab / Microbiology Data 11/29/24 08:32 11/29/24 08:32 Laboratory: Laboratory Results - last 24 hr 12/02/24 11:11: POC Glucose 143 H 12/02/24 12:11: Troponin I High Sens 9 12/02/24 13:55: Troponin I High Sens 7 12/02/24 16:35: Urine Opiates Screen NEGATIVE, Urine Methadone Screen NEGATIVE, Ur Barbiturates Screen NEGATIVE, Ur Phencyclidine Scrn NEGATIVE, Ur Amphetamines Screen NEGATIVE, MDMA (Ecstasy) Screen NEGATIVE, U Benzodiazepines Scrn NEGATIVE, Urine Cocaine Screen NEGATIVE, U Cannabinoids Screen NEGATIVE, Ur Drug Screen Comment 12/02/24 16:36: POC Glucose 136 H 12/02/24 20:44: Troponin I High Sens 9 12/02/24 21:41: POC Glucose 144 H Microbiology: Microbiology 11/29/24 09:40 Blood Culture (Wb) - Left Hand Blood Culture - Final No growth in 5 days. 11/29/24 08:32 Blood Culture (Wb) - Left Wrist Blood Culture - Final No growth in 5 days. 12/02/24 16:35 Urine Catheter - [place] Urine Culture - Preliminary Culture exhibits no growth. 11/29/24 10:50 Urine Catheter - Catheter Urine Culture - Final Culture exhibits no growth. Radiography Diagnostic Testing: Radiology Impression Cervical Spine MRI 12/02/24 15:49 IMPRESSION: Motion degraded exam. 1. No significant spinal stenosis or foraminal narrowing. 2. Intact cord signal. Negative for fracture. [facility] Thoracic Spine MRI 12/02/24 15:49 IMPRESSION: Motion degraded exam. 1. Negative for fracture. Normal cord signal. 2. No focal disc abnormality, spinal stenosis or foraminal narrowing. Reading Location[facility] D/C Instructions DC O2, CPAP, BIPAP Needs Home O2 Discharge instructions: No Meaningful Use Info Meaningful Use Meaningful Use Diagnoses (Choose all that apply): None applicable Ischemic Stroke Statin Dosing Therapy Reference: STATIN DOSE THERAPY REFERENCE: * Patients > 75 years receive moderate or high dose statin therapy. * Patients 75 years or YOUNGER should receive HIGH intensity statin dose unless contraindicated. You will be required to document reason for non-treatment if statin daily dose does not meet guidelines. HIGH DOSE STATIN THERAPY DAILY Atorvastatin > than or = to 40 mg Rosuvastatin > than or = to 20 mg Amlodipine + Atorvastatin > than or = to 2.5/40 mg Ezetimibe + Simvastatin 10/80 mg Simvastatin 80mg Discharge Plan Admission Admit Date/Time: 11/29/24 12:47 Primary Reason for Your Visit: acute encephalopathy Attending Provider: Tiesha Tiwari Primary Care Provider: CASANDRA SORIA Consulting Providers: Mart Anglin; Jean Paul Jackson; Clare Strauss; Bruna Choi; Lyn He; Arelis Logan; Jair Lopez; Desi Valencia; Ochoa Karimi; Simba Cabrales; Roman Altamirano; Kaylen Ivan; Last Maya; Deann Mathur; Rupal Avery; Debbie Moya; Cristhian Begum; Thelma Perez; Howie Pedro; Elodia Spencer; Deanna Addison Discharge Orders/Prescriptions Prescriptions: No Action clopidogrel 75 mg tablet 75 mg PO DAILY lisinopril 5 mg tablet 5 mg PO DAILY metoprolol tartrate 50 mg tablet 50 mg PO DAILY simvastatin 40 mg tablet 40 mg PO DAILY metformin 1,000 mg tablet 1,000 mg PO BID 60 Days Qty: 120 0RF glimepiride 1 mg tablet 1 mg PO DAILY Qty: 60 0RF guaifenesin [Mucinex] 600 mg Tablet Extended Release 12hr 600 mg PO BID Rx Instructions: take for 10 days starting 11/20/24 Referrals / Follow Up: CASANDRA SORIA MD [Primary Care Provider] - Disposition Disposition (needs filled in before D/C Order can be placed): Acute Care Hospital Charges/Coding Visit Charges Inpatient E&M: 28968 Disch Hosp >30min
[2024-12-05 16:09] LABS: Thyroglobulin Antibody < 1.0 IU/mL (0.0-0.9); Thyroid Peroxidase AB 9 IU/mL (0-34)
== END 2024-12-03 03:50 | disposition short-term general hospital (02) | DRG 71 ==
LOC: ED 12:59 → PCU 14:17 → MS3 11-30 23:18
PROVIDERS: Admitting Provider Family Medicine; Emergency Provider Emergency Medicine; PCP Internal Medicine Cardiovascular Disease; Visit Provider Student in an Organized Health Care Education/Training Program
DX: G93.40 Encephalopathy, unspecified (principal); E87.20 Acidosis, unspecified; J44.9 Chronic obstructive pulmonary disease, unspecified; E11.65 Type 2 diabetes mellitus with hyperglycemia; F24 Shared psychotic disorder; I10 Essential (primary) hypertension; E05.90 Thyrotoxicosis, unspecified without thyrotoxic crisis or storm; Z68.31 Body mass index [BMI] 31.0-31.9, adult; Z79.4 Long term (current) use of insulin; K82.8 Other specified diseases of gallbladder; I45.10 Unspecified right bundle-branch block; E78.5 Hyperlipidemia, unspecified; I25.10 Atherosclerotic heart disease of native coronary artery without angina pectoris; R53.1 Weakness; N25.89 Other disorders resulting from impaired renal tubular function; Z87.891 Personal history of nicotine dependence; Z79.84 Long term (current) use of oral hypoglycemic drugs; N32.89 Other specified disorders of bladder; Z79.02 Long term (current) use of antithrombotics/antiplatelets; Z79.891 Long term (current) use of opiate analgesic; Z53.20 Procedure and treatment not carried out because of patient's decision for unspecified reasons; Z53.09 Procedure and treatment not carried out because of other contraindication; E66.9 Obesity, unspecified
CPT/HCPCS: 36415; 70450; 70553; 71046; 72141; 72157; 74177; 80053; 80307; 81001; 82140; 82746; 82962; 83605; 84439; 84443; 84481; 84484; 85025; 85610; 85730; 86376; 86800; 87040; 87086; 93005; 97162; 97166; 97530; 99285; A9575; Q9967; A4216

== ENCOUNTER 2024-12-26 13:32 | Emergency (ER) | payer MEDICARE, OTHER, SELFPAY ==
[2024-12-26] VITALS (7 sets, daily range): BP systolic 91–156; BP diastolic 53–73; PULSE 71–101; RESP 12–20; TEMP 36.3–37; O2SAT 92–100; BMI 24.8
--- NOTE | 2024-12-26 15:05 | EKG12_ITS ---
Test Reason : SEIZURE Blood Pressure : */* mmHG Vent. Rate : 88 BPM Atrial Rate : 88 BPM P-R Int : 196 ms QRS Dur : 128 ms QT Int : 372 ms P-R-T Axes : 64 53 44 degrees QTcB Int : 450 ms Poor data quality, interpretation may be adversely affected Normal sinus rhythm Right bundle branch block Possible Inferior infarct (cited on or before 29-Nov-2024) Abnormal ECG Confirmed by CORINA WASHINGTON, IMELDA ([id number]), science editor JACQUES LEPE ([id number]) on 12/27/2024 8:18:24 AM Referred By: Confirmed By: IMELDA ARRIAGA MD
[2024-12-26 15:12] LABS: Absolute Lymphocyte Count 0.74 X10^3/uL (0.83-4.51); Absolute Neutrophil Count 6.4 X10^3/uL (2.0-7.7); Basophil# 0.03 X10^3/uL; Basophil% 0.4 % (0-1); Eosinophils% 1.2 % (0-5); Hematocrit 40.1 % (40-54); Hemoglobin 13.8 g/dL (13.0-16.5); Lymphocyte # 0.74 X10^3/ul (0.83-4.51); Lymphocyte % 9.2 % (19-41); Mean Corp Hgb Conc 34.4 g/dL (32-36); Mean Corpuscular Hgb 31.5 pg (27.0-32.0); Mean Corpuscular Volume 91.6 fL (80-94); Mean Platelet Vol. 10.6 fl (6.2-12.0); Monocyte# 0.73 X10^3/uL; Monocyte% 9.1 % (0-10); NRBC Flagged by Analyzer 0 % (0-5); Neutrophil % 79.7 % (47-70); Platelet Count 216 K/mm3 (150-450); RBC Distribution Width CV 13.1 % (11.6-14.6); RBC Distribution Width SD 42.4 fl (35.1-43.9); Red Blood Count 4.38 M/mm3 (4.6-6.2)
[2024-12-26] MEDS: 0.9% Normal Saline (500mL Bag) 500 ML 1000 ML IV (15:12)
--- NOTE | 2024-12-26 15:20 | RAD_ITS ---
PROCEDURE: CHEST 1 VIEW (PORTABLE) (RADCXPA_P), 12/26/2024 REASON FOR EXAM: COUGH TECHNIQUE: A single portable AP view of the chest was obtained. COMPARISON: 11/29/2024 FINDINGS: Heart: Unremarkable. Mediastinum: Mild atherosclerosis in the aortic arch. Lungs/pleura: No focal consolidation. No sizeable pleural effusion or visible pneumothorax. Bones: Suspected demineralization. Lines and support devices: None. RAD/Chest 1 View (Portable) IMPRESSION: 1. No visible acute cardiopulmonary findings. 2. Additional description as above. Reading Location: [id number]
--- NOTE | 2024-12-26 15:25 | EX.ED.DYSGE1 ---
HPI History of Present Illness Chief Complaint: Seizure Informant: patient Narrative Narrative: Brought in by EMS from [facility] for seizure-like activities. He status post 2 mg Versed by EMS. During my evaluation patient alert and orient x 3 he states he has had a cough. States he has had seizures in the past maybe last few months admitted here. He is not on any antiepileptics. He states he has a cough. Denies headache. Denies urinary symptoms. Denies vomiting or diarrhea. Blood glucose 310 by EMS. Prior similar symptoms: Yes PFSH PFS Medical History Metabolic encephalopathy Guillain-Ector syndrome Dysphagia, oropharyngeal phase Benign prostatic hyperplasia without lower urinary tract symptoms Generalized weakness Altered mental status Hypertension CAD (coronary artery disease) Type 2 diabetes mellitus COPD (chronic obstructive pulmonary disease) Home Medications ?Medication ?Instructions ?Recorded ?Last Taken ?Type clopidogrel 75 mg tablet 75 mg PO DAILY BLOOD THINNER 11/18/24 Unknown History lisinopril 5 mg tablet 5 mg PO DAILY HYPERTENSION 11/18/24 Unknown History metoprolol tartrate 50 mg tablet 50 mg PO DAILY 11/18/24 Unknown History glimepiride 1 mg tablet 1 mg PO DAILY Diabetes #60 tabs 11/20/24 Unknown Rx metformin 1,000 mg tablet 1,000 mg PO BID Diabetes 60 days 11/20/24 Unknown Rx #120 tabs acetaminophen 325 mg capsule 650 mg PO Q6H PRN fever 12/26/24 Unknown History atorvastatin 20 mg tablet 20 mg PO DAILY 12/26/24 Unknown History docusate sodium 100 mg capsule 100 mg PO DAILY PRN constipation 12/26/24 Unknown History (Col-Rite) melatonin 3 mg tablet 6 mg PO DAILY PRN insomnia 12/26/24 Unknown History Allergy/AdvReac Type Severity Reaction Status Date / Time bee venom protein (honey Allergy Severe Hives Verified 12/26/24 13:42 bee) (bee sting) meperidine (From Demerol) Allergy Severe Other Verified 12/26/24 13:42 Social History household members: spouse housing: house Smoking Status: Former smoker ROS ROS ED Constitutional Constitutional ED: Denies chills, fever(s) or sweats ENT ENT ED: Denies sore throat Cardiovascular Cardiovascular: Denies chest pain, leg edema, palpitations or racing heartbeat Respiratory/Chest Respiratory/Chest: Reports cough; Denies dyspnea or dyspnea on exertion Gastrointestinal Gastrointestinal: Denies abdominal pain, diarrhea, nausea or vomiting Genitourinary Genitourinary ED: Denies dysuria, hematuria or urinary frequency Musculoskeletal Musculoskeletal: Denies back pain, extremity pain or neck pain Integumentary Denies rash or wounds Neurologic Neurologic: Reports other Details: Seizure ; Denies headache(s), paresthesias or weakness EXAM Physical Exam Const Vital Signs: 12/26/24 13:35 12/26/24 14:40 12/26/24 15:00 Temperature 97.3 F L 98.6 F 97.9 F Temperature Source Axillary Oral Axillary Pulse Rate 100 91 71 Respiratory Rate 18 12 17 Blood Pressure 145/70 H 132/72 H 145/73 H Blood Pressure Mean 95 92 97 Pulse Ox 97 92 97 Oxygen Delivery Method Room Air Room Air Room Air 12/26/24 16:00 12/26/24 17:00 12/26/24 17:44 Temperature 97.7 F L 97.7 F L 97.9 F Temperature Source Axillary Axillary Pulse Rate 87 99 95 Respiratory Rate 18 16 20 H Blood Pressure 156/71 H 151/73 H 150/70 H Blood Pressure Mean 99 99 96 Pulse Ox 98 97 97 Oxygen Delivery Method Room Air 12/26/24 23:03 Temperature Temperature Source Pulse Rate 101 H Respiratory Rate 20 H Blood Pressure 91/53 L Blood Pressure Mean 65 Pulse Ox 100 Oxygen Delivery Method Room Air Positive well nourished and well developed General Appearance ED: well developed and NAD HEENT Reports moist mucous membranes HEENT Narrative: No tongue laceration or abrasions. normocephalic and atraumatic Eyes PERRL and EOMs intact bilaterally General Eye ED: Yes normal appearance of both eyes Neck full ROM Chest Wall Chest: Negative for tenderness Resp normal respiratory effort and normal air movement Effort and Inspection: symmetric chest movement; Negative for respiratory distress Cardio regular rate, regular rhythm and no murmurs Peripheral Pulses: pulses 2+ throughout GI normal to inspection, nondistended, normoactive bowel sounds and non-tender Palpation: Negative for guarding or rebound tenderness present Extremity normal to inspection General Extremety ED: Negative for edema or tenderness General Extremity: Negative for edema Neuro oriented x3, CN's II-XII intact bilaterally and no sensory deficits noted Neuro Narrative: No focal deficit on exam. Sensorium / Orientation: awake and alert Skin no rashes or lesions noted and no wounds MDM MDM MDM Narrative Medical decision making narrative: Interventions / MDM: Differential diagnosis: Seizure Diagnosis considered but do not suspect: Intracranial hemorrhage however CT negative. Pneumonia however x-ray negative. My EKG interpretation: Sinus rate of 88, no ST changes, T wave version anterior leads with right bundle branch block. Similar to December 02, 2024. Imaging independently reviewed and interpreted by myself: CT brain: No acute process. 1 view chest x-ray: No acute process. External documents reviewed: N/A Test considered but not ordered:N/A ED course: Patient alert and orient x 3 during my evaluation reported seizure activities he reported cough. He is moving all extremities with no focal deficit. CT brain ordered, chest x-ray, labs and urine. 1727: Reevaluate patient spouse and sisters in the room. I reviewed reviewed records he was hospitalized transfer [facility] December 03 2024 for his altered mental status for further workup. Spouse states they found [place] virus in his blood therefore lumbar puncture was not performed. He was improving. Currently they report he is his baseline. Spouse states she was at the facility when she noted seizure-like activities with arm and leg shaking he was confused briefly. She states there was an EEG done at [facility] that was negative. He has had no seizure history. CT brain negative chest x-ray negative. Labs are stable. I will discuss with hospitalist service for admission to repeat EEG with spouse reported seizure-like activities. COVID flu and RSV negative. Glucose 261 with a normal gap. 1830: Was relayed to me apparently patient had a seizure type activity while being valued by hospitalist Dr. Chavez, he was given 2 mg of Ativan. Patient reported that patient will require transfer. I ordered for patient 1500 mg of Depakote. 2340: I spoke with transfer line at [facility] with Dr. Cota, discussed not having 24-hour capabilities EEG at our facility therefore recommendations for transfer. He has no seizure activities at this time. He is excepted. Will await transport. Re-evaluation: stable Disposition discussed with patient/family/significant other: Patient spouse and sister Case discussed with consulting clinician: Hospitalist This note was generated with ReachForce[employer] software. It may contain incorrect words, spelling, and punctuation that were not noted in checking the note before signing. Lab Data Attestation: I reviewed the patient's lab results. Labs: Laboratory Results - last 24 hr 12/26/24 12/26/24 13:45 16:30 WBC 8.0 RBC 4.38 L Hgb 13.8 Hct 40.1 MCV 91.6 MCH 31.5 MCHC 34.4 RDW Std Deviation 42.4 RDW Coeff of Rosemary 13.1 Plt Count 216 MPV 10.6 Immature Gran % (Auto) 0.400 Neut % (Auto) 79.7 H Lymph % (Auto) 9.2 L [place] % (Auto) 9.1 Eos % (Auto) 1.2 Baso % (Auto) 0.4 Absolute Neuts (auto) 6.4 Absolute Lymphs (auto) 0.74 L Nucleated RBC % 0 Sodium 137 Potassium 4.0 Chloride 101 Carbon Dioxide 23.3 Anion Gap 13 BUN 10 Creatinine 0.66 L Estim Creat Clear Calc 88.90 Est GFR (MDRD) Non-Af 100 BUN/Creatinine Ratio 15.5 Glucose 261 H Calcium 9.5 Total Bilirubin 0.79 AST 21 ALT 32 Alkaline Phosphatase 87 Total Protein 6.5 Albumin 3.7 Globulin 2.8 Albumin/Globulin Ratio 1.3 Urine Color Straw Urine Clarity Clear Urine pH 5.0 Ur Specific [place] 1.025 Urine Protein 30 H Urine Glucose (UA) 250 H Urine Ketones 50 H Urine Occult Blood 10 H Urine Nitrite Negative Urine Bilirubin 1 H Urine Urobilinogen 4 H Ur Leukocyte Esterase 25 H Urine RBC 5-10 SEEN Urine WBC 5-10 SEEN Ur Squamous Epith Cells 0 SEEN Calcium Oxalate Crystal RARE Urine Bacteria 1+ Urine Mucus 3+ Urine Yeast 1+ Radiography Diagnostic Testing: Clinical Impression(s) from Imaging Studies Chest X-Ray 12/26/24 15:20 IMPRESSION: 1. No visible acute cardiopulmonary findings. 2. Additional description as above. Reading Location: [id number] Brain CT 12/26/24 15:48 IMPRESSION: 1. No visible acute intracranial findings. If there is persistent concern, recommend MRI. 2. Additional description as above. Reading Location: [facility] Discharge Plan Triage Chief Complaint: Seizure ED Provider: Sachin Gonzalez Dx/Rx/DC Orders Clinical Impression: Recurrent seizures, COPD (chronic obstructive pulmonary disease), Hyperglycemia due to diabetes mellitus Prescriptions: No Action clopidogrel 75 mg tablet 75 mg PO DAILY lisinopril 5 mg tablet 5 mg PO DAILY metoprolol tartrate 50 mg tablet 50 mg PO DAILY metformin 1,000 mg tablet 1,000 mg PO BID 60 Days Qty: 120 0RF glimepiride 1 mg tablet 1 mg PO DAILY Qty: 60 0RF atorvastatin 20 mg tablet 20 mg PO DAILY docusate sodium [Col-Rite] 100 mg capsule 100 mg PO DAILY PRN (Reason: constipation) melatonin 3 mg tablet 6 mg PO DAILY PRN (Reason: insomnia) acetaminophen 325 mg capsule 650 mg PO Q6H PRN (Reason: fever) Primary Care Provider: CASANDRA SORIA Referrals: CASANDRA SORIA MD [Primary Care Provider] - Print Language: Portuguese Disposition Disposition: DC/Tx to Another Type of HCF
--- NOTE | 2024-12-26 15:48 | CT_ITS ---
PROCEDURE: BRAIN/HEAD WITHOUT CONTRAST (CTBR), 12/26/2024 REASON FOR EXAM: SEIZURE COMPARISON: 12/01/2024 TECHNIQUE: CT head was performed without IV contrast. Multiplanar reformats were generated. IV Contrast: None. FINDINGS: Cerebrum: No visible intracranial hemorrhage, mass, or definite acute territorial infarct. Mild cerebral volume loss. Cerebellum/brainstem: Unremarkable. Note slight limitation due to beam hardening artifact. Ventricles/extra-axial spaces: Unremarkable. Paranasal sinuses/mastoid air cells: Unremarkable. Scalp/calvarium: Unremarkable. Other: Bilateral cataract surgery. Mild intracranial atherosclerosis. CT/Brain/Head without Contrast IMPRESSION: 1. No visible acute intracranial findings. If there is persistent concern, fern mmend MRI. 2. Additional description as above. Reading Location: [id number]
[2024-12-26 15:49] LABS: ALB/GLOB Ratio 1.3 RATIO (0.9-2.4); AST(SGOT) 21 U/L (<=37); Alanine Aminotransfer ALT/SGPT 32 U/L (<=46); Albumin, Serum 3.7 g/dL (3.4-4.8); Alkaline Phosphatase 87 U/L (40-129); Anion Gap 13 (5-15); BUN 10 mg/dL (4-19); BUN/Creat Ratio 15.5 RATIO (10-20); Calcium,Total 9.5 mg/dL (7.6-11.0); Carbon Dioxide 23.3 mmol/L (21.0-32.0); Chloride 101 mmol/L (98-108); Creatinine, Serum 0.66 mg/dL (0.70-1.20); EST Glomerular Filtration Rate 100 (>60); Globulin 2.8 g/dL (2.2-4.2); Glucose 261 mg/dL (70-99); Protein, Total 6.5 g/dL (5.9-8.4); Sodium Level 137 mmol/L (133-145); Total Bilirubin 0.79 mg/dL (0.00-1.30)
[2024-12-26 16:34] LABS: Squamous Epithelial Cells - UA 0 SEEN /hpf (0-5)
[2024-12-26 16:40] LABS: Color, Urine Straw (Yellow); Glucose, Dipstick 250 mg/dl (Normal); Ketone-Dipstick 50 mg/dl (Negative); Leukocyte Esterase-Dipstick 25 /ul (Negative); Nitrite-Dipstick Negative (Negative); Occult Blood-Urine 10 /ul (Negative); Protein-Dipstick 30 mg/dl (Negative); Specific Gravity, Urine 1.025 (1.002-1.030); Urine Clarity Clear (Clear); Urine Urobilinogen 4 mg/dl (Normal)
[2024-12-26 16:58] LABS: Urine Bilirubin Dipstick 1 mg/dL (Negative)
[2024-12-26 17:31] LABS: Bacteria 1+ /hpf (None Seen); Calcium Oxalate Crystals Ur RARE /hpf (<or=2+); Mucous, Urine 3+ /hpf (<or=2+); Red Blood Cells-Urine 5-10 SEEN /hpf (0-5); White Blood Cells 5-10 SEEN /hpf (0-5); Yeast-Urine 1+ /hpf (None Seen)
[2024-12-26] MEDS: VALPROATE SODIUM IV (19:48)
[2024-12-26] MEDS: WATER IV (19:48)
[2024-12-26] MEDS: DEXTROSE 5% IV (19:48)
[2024-12-26] MEDS: Lorazepam 2 MG/ML WCH Syringe IV (19:49)
--- NOTE | 2024-12-26 21:34 | ED.RN ---
This Rn called to speak with Sister Sotero and let her know where pt. is being transferred. Sotero stated she would call pt. and have her call us back to give consent to transfer
--- NOTE | 2024-12-26 23:17 | ED.RN ---
called report to [facility]N at this time, all questions answered at this time.
== END 2024-12-26 23:56 | disposition short-term general hospital (02) ==
PROVIDERS: Emergency Provider Emergency Medicine; PCP Internal Medicine Cardiovascular Disease; Visit Provider Emergency Medicine
DX: G40.909 Epilepsy, unspecified, not intractable, without status epilepticus (principal); J44.9 Chronic obstructive pulmonary disease, unspecified; E11.65 Type 2 diabetes mellitus with hyperglycemia; Z11.52 Encounter for screening for COVID-19; I10 Essential (primary) hypertension; I25.10 Atherosclerotic heart disease of native coronary artery without angina pectoris; Z79.02 Long term (current) use of antithrombotics/antiplatelets; Z79.84 Long term (current) use of oral hypoglycemic drugs; Z79.899 Other long term (current) drug therapy; Z87.891 Personal history of nicotine dependence
CPT/HCPCS: 70450; 71045; 80053; 81001; 85025; 87631; 93005; 96361; 96365; 96366; 96375; 99285; A4216